=== PATIENT | female | born 1970 | race Caucasian/White ===

== ENCOUNTER 2017-03-30 16:14 | Inpatient (IN) ==
--- NOTE | 2017-03-30 16:47 | Emergency Department Note ---
Disposition Clinical Impression: Suicidal ideation Depression Qualifiers: Depression Type: unspecified Qualified Code(s): F32.9 - Major depressive disorder, single episode, unspecified Disposition: Admitted As Inpatient Condition: Fair Referrals: NO,PCP [Primary Care Provider] - Forms: ED Satisfaction Letter Time of Disposition: 20:18 Psych HPI - General Chief Complaint: ED Psychiatric Symptoms Stated Complaint: Depression (Sent by conselor) Time Seen by Provider: 03/30/17 16:40 Source: patient Mode of arrival: private vehicle Limitations: no limitations Nursing Notes Reviewed: Yes Vital Signs Reviewed: Yes - History of Present Illness Pt complaint: suicidal ideation, feels depressed Onset (ago): week(s) Duration: constant History of similar episodes: Yes Improves with: none Worsens with: none Context: not taking psychiatric medications, significant life stressor Associated Psychiatric Symptoms: depression, suicidal ideation, anxiety Associated symptoms: Reports: denies other symptoms Traumatic symptoms: denies traumatic injury Treatments prior to arrival: none Self harm or harm to others: admits thoughts of self harm - Related Data Previous Rx's Medication Instructions Recorded Ondansetron HCl [Zofran] 4 mg PO Q4HR PRN #12 tablet 06/10/16 HydrOXYzine Pamoate [Vistaril] 25 mg PO TID #20 capsule 10/06/16 HYDROcodone/Acet 5/325 mg [[place] 1 - 2 tab PO Q6H PRN #10 tab 03/29/17 5-325 mg] Allergies Allergy/AdvReac Type Severity Reaction Status Date / Time morphine AdvReac Itching Verified 03/30/17 16:38 All systems ED: reviewed and negative except as stated. Constitutional: Denies: fever, chills ENT ED: Denies: ear pain, throat pain, congestion Cardiovascular: Denies: chest pain, palpitations Respiratory: Denies: cough, dyspnea Gastrointestinal: Denies: abdominal pain, vomiting Musculoskeletal: Reports: arthralgia (Left shoulder pain due to an issue with shoulder dislocation that she is currently being treated for) Past Medical History - Past Medical History Attestation: Yes The following information was validated with the patient. 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 Absent: lymphadenopathy, thyromegaly - Chest Chest inspection: Present: normal inspection, symmetric chest wall rise. Absent : tenderness - Respiratory Respiratory exam: Present: normal lung sounds bilaterally. Absent: respiratory distress, wheezes - Cardiovascular Cardiovascular exam: Present: regular rate, normal rhythm, normal heart sounds - Abdominal Exam Abdominal exam: Present: soft, Non-Tender, normal bowel sounds. Absent: mass - Extremities Exam Extremities exam: Absent: pedal edema, joint swelling - Back Exam Back exam: Present: normal inspection, full ROM - Neurological Exam Neurological exam: Present: alert, oriented X3 - Psychiatric Psychiatric exam: Present: normal affect, normal mood - Skin Skin exam: Present: warm, dry. Absent: rash Course Course Narrative: Patient presents with a complaint of depression and suicidal ideation. She was sent in by her counselor. Clinically here she is calm and cooperative. My evaluation shows no obvious indications of medical pathology. We will do the labs and the urine assessment to complete the medical screening exam. If that is negative I will consult psychiatry to evaluate the patient. She is calm and cooperative at this time. - Reevaluation(s) Reevaluation #1: Patient's labs are back. She has some questionable issues with her urine but is pretty contaminated. There is nothing medically here to prohibit her from being seen by mental health. We will consult them. Time: 17:58 Reevaluation #2: Psychiatry seen the patient. They are admitting her. She remains calm and cooperative at this time. Time: 20:16 Vital Signs Temperature 98.7 F 03/30/17 16:31 Pulse Rate 78 03/30/17 16:31 Respiratory Rate 16 03/30/17 16:31 Blood Pressure 127/79 03/30/17 16:31 O2 Sat by Pulse Oximetry 98 03/30/17 16:31 Temperature 98.7 F 03/30/17 16:31 Pulse Rate 78 03/30/17 16:31 Respiratory Rate 16 03/30/17 16:31 Blood Pressure 127/79 03/30/17 16:31 O2 Sat by Pulse Oximetry 98 03/30/17 16:31 Oxygen Delivery Oxygen Delivery Room Air Psych - Lab Data Lab results reviewed: Yes I reviewed the patient's lab results. Result diagrams: 03/30/17 17:15 03/30/17 17:15 Lab Results 03/30/17 03/30/17 03/30/17 Range/Units 17:09 17:09 17:09 WBC (4.3-11.1) K/mcL RBC (3.82-4.97) M/mcL Hgb (11.5-15.4) g/dL Hct (35.3-44.9) % MCV (83.0-100.0) fL MCH (28.0-33.3) pg MCHC (31.6-35.5) g/dL RDW (11.5-14.5) % Plt Count (140-400) K/mcL MPV (9.4-12.4) fL Immature Gran % (0-4) % Seg Neutrophils % % Lymphocytes % % Monocytes % % Eosinophils % % Basophils % % Neutrophils # (1.6-8.9) K/mcL Lymphocytes # (0.6-4.6) K/mcL Monocytes # (0.0-1.3) K/mcL Eosinophils # (0.0-0.6) K/mcL Basophils # (0.0-0.2) K/mcL Sodium (136-145) mEq/L Potassium (3.5-4.5) mEq/L Chloride (98-109) mEq/L Carbon Dioxide (19-29) mEq/L BUN (7-20) mg/dL Creatinine (0.57-1.11) mg/dL Est GFR ( Amer) (> 60) Est GFR (Non-Af Amer) (> 60) BUN/Creatinine Ratio (6-26) Glucose (70-99) mg/dL Calculated Osmolality (280-300) Calcium (8.6-10.8) mg/dL Total Bilirubin (0.2-1.2) mg/dL Direct Bilirubin (0.0-0.5) mg/dL Indirect Bilirubin (0.0-1.2) mg/dL AST (5-34) Units/L ALT (0-55) Units/L Alkaline Phosphatase (38-126) Units/L Serum Total Protein (6.0-8.3) g/dL Albumin (3.5-5.0) g/dL Globulin (2.4-3.5) g/dL Albumin/Globulin Ratio (1.1-2.2) TSH (0.350-4.840) mcIU/mL Urine Color Yellow (Yellow) Urine Clarity Cloudy A (Clear) Urine pH 5.5 (5.0-8.0) pH Units Ur Specific [place] > 1.030 H (1.010-1.025) Urine Protein Negative (Neg-Trace) mg/dL Urine Glucose (UA) Normal (Normal) mg/dL Urine Ketones Negative (Negative) mg/dL Urine Blood Negative (Negative) Urine Nitrite Negative (Negative) Urine Bilirubin Large H (Negative) Urine Urobilinogen Normal (Normal) mg/dL Ur Leukocyte Esterase Negative (Negative) Urine Microscopic RBC 50-100 H (0-3) per hpf Urine Microscopic WBC 5-15 H (0-3) per hpf Ur Squamous Epith Cells Many H (None-Few) per lpf Urine Bacteria Moderate H (None-Few) per hpf Urine Test Negative (Negative) Salicylates (15-30) mg/dL Urine Opiates Screen Positive H (Victdp=472) ng/mL Acetaminophen (10-30) mcg/mL Ur Barbiturates Screen Negative (Ilarby=807) ng/mL Ur Phencyclidine Scrn Negative (Cutoff=25) ng/mL Ur Amphetamines Screen Negative (Lfqkga=2674) ng/mL U Benzodiazepines Scrn Positive H (Tsycwk=732) ng/mL Urine Cocaine Screen Positive H (Cutoff= 300) ng/mL U Marijuana (THC) Screen Negative (Cutoff = 50) ng/mL Ethyl Alcohol (0-10) mg/dL 03/30/17 03/30/17 Range/Units 17:15 17:15 WBC 5.4 (4.3-11.1) K/mcL RBC 4.10 (3.82-4.97) M/mcL Hgb 12.5 (11.5-15.4) g/dL Hct 37.7 (35.3-44.9) % MCV 92.0 (83.0-100.0) fL MCH 30.5 (28.0-33.3) pg MCHC 33.2 (31.6-35.5) g/dL RDW 11.9 (11.5-14.5) % Plt Count 211 (140-400) K/mcL MPV 10.6 (9.4-12.4) fL Immature Gran % 0.2 (0-4) % Seg Neutrophils % 54.7 % Lymphocytes % 37.6 % Monocytes % 5.3 % Eosinophils % 1.5 % Basophils % 0.7 % Neutrophils # 3.0 (1.6-8.9) K/mcL Lymphocytes # 2.0 (0.6-4.6) K/mcL Monocytes # 0.3 (0.0-1.3) K/mcL Eosinophils # 0.1 (0.0-0.6) K/mcL Basophils # 0.0 (0.0-0.2) K/mcL Sodium 140 (136-145) mEq/L Potassium 3.7 (3.5-4.5) mEq/L Chloride 108 (98-109) mEq/L Carbon Dioxide 22 (19-29) mEq/L BUN 26 H (7-20) mg/dL Creatinine 0.73 (0.57-1.11) mg/dL Est GFR ( Amer) > 60 (> 60) Est GFR (Non-Af Amer) > 60 (> 60) BUN/Creatinine Ratio 36 H (6-26) Glucose 117 H (70-99) mg/dL Calculated Osmolality 296 (280-300) Calcium 9.0 (8.6-10.8) mg/dL Total Bilirubin 0.3 (0.2-1.2) mg/dL Direct Bilirubin 0.2 (0.0-0.5) mg/dL Indirect Bilirubin 0.1 (0.0-1.2) mg/dL AST 31 (5-34) Units/L ALT 30 (0-55) Units/L Alkaline Phosphatase 61 (38-126) Units/L Serum Total Protein 7.0 (6.0-8.3) g/dL Albumin 3.7 (3.5-5.0) g/dL Globulin 3.3 (2.4-3.5) g/dL Albumin/Globulin Ratio 1.1 (1.1-2.2) TSH 0.301 L (0.350-4.840) mcIU/mL Urine Color (Yellow) Urine Clarity (Clear) Urine pH (5.0-8.0) pH Units Ur Specific [place] (1.010-1.025) Urine Protein (Neg-Trace) mg/dL Urine Glucose (UA) (Normal) mg/dL Urine Ketones (Negative) mg/dL Urine Blood (Negative) Urine Nitrite (Negative) Urine Bilirubin (Negative) Urine Urobilinogen (Normal) mg/dL Ur Leukocyte Esterase (Negative) Urine Microscopic RBC (0-3) per hpf Urine Microscopic WBC (0-3) per hpf Ur Squamous Epith Cells (None-Few) per lpf Urine Bacteria (None-Few) per hpf Urine Test (Negative) Salicylates < 5.0 L (15-30) mg/dL Urine Opiates Screen (Stifls=305) ng/mL Acetaminophen < 1.0 L (10-30) mcg/mL Ur Barbiturates Screen (Bpqfea=280) ng/mL Ur Phencyclidine Scrn (Cutoff=25) ng/mL Ur Amphetamines Screen (Nrrtio=7768) ng/mL U Benzodiazepines Scrn (Bkmlnv=602) ng/mL Urine Cocaine Screen (Cutoff= 300) ng/mL U Marijuana (THC) Screen (Cutoff = 50) ng/mL Ethyl Alcohol < 10 (0-10) mg/dL Psychiatric Medical Clearance - Medical Clearance Checklist Medical History: No Social History Section defined Current Vitals: Last Vital Signs Temp 98.7 F 03/30/17 16:31 Pulse 78 03/30/17 16:31 Resp 16 03/30/17 16:31 BP 127/79 03/30/17 16:31 Pulse Ox 98 03/30/17 16:31 Psychiatric Lab Panel: Drug Levels and Toxicity 03/30/17 03/30/17 17:09 17:15 Urine Opiates Screen Positive H Acetaminophen < 1.0 L Ur Barbiturates Screen Negative Ur Phencyclidine Scrn Negative Ur Amphetamines Screen Negative U Benzodiazepines Scrn Positive H Urine Cocaine Screen Positive H U Marijuana (THC) Screen Negative Ethyl Alcohol < 10 Abnormal Labs: Abnormal lab results BUN 26 mg/dL (7-20) H 03/30/17 17:15 BUN/Creatinine Ratio 36 (6-26) H 03/30/17 17:15 Glucose 117 mg/dL (70-99) H 03/30/17 17:15 TSH 0.301 mcIU/mL (0.350-4.840) L 03/30/17 17:15 Urine Clarity Cloudy (Clear) A 03/30/17 17:09 Ur Specific [place] > 1.030 (1.010-1.025) H 03/30/17 17:09 Urine Bilirubin Large (Negative) H 03/30/17 17:09 Urine Microscopic RBC 50-100 per hpf (0-3) H 03/30/17 17:09 Urine Microscopic WBC 5-15 per hpf (0-3) H 03/30/17 17:09 Ur Squamous Epith Cells Many per lpf (None-Few) H 03/30/17 17:09 Urine Bacteria Moderate per hpf (None-Few) H 03/30/17 17:09 Salicylates < 5.0 mg/dL (15-30) L 03/30/17 17:15 Urine Opiates Screen Positive ng/mL (Cdmydt=603) H 03/30/17 17:09 Acetaminophen < 1.0 mcg/mL (10-30) L 03/30/17 17:15 U Benzodiazepines Scrn Positive ng/mL (Klojvp=213) H 03/30/17 17:09 Urine Cocaine Screen Positive ng/mL (Cutoff= 300) H 03/30/17 17:09 Statement of Medical Clearance: I have evaluated the patient, reviewed diagnostic information, and certify that the patient's medical condition is sufficiently stable that transfer to the psychiatric unit does not pose a significant risk of deterioration.
[2017-03-30 17:25] LABS: Basophils % 0.7 %; Eosinophils # 0.1 K/mcL (0.0-0.6); Eosinophils % 1.5 %; Hematocrit 37.7 % (35.3-44.9); Hemoglobin 12.5 g/dL (11.5-15.4); Immature Granulocytes % 0.2 % (0-4); Lymphocytes % 37.6 %; Mean Corpuscular HGB Conc 33.2 g/dL (31.6-35.5); Mean Corpuscular Hemoglobin 30.5 pg (28.0-33.3); Mean Platelet Volume 10.6 fL (9.4-12.4); Monocytes # 0.3 K/mcL (0.0-1.3); Monocytes % 5.3 %; Platelet Count 211 K/mcL (140-400); Red Cell Distribution Width 11.9 % (11.5-14.5); Segmented Neutrophils % 54.7 %
[2017-03-30 17:26] LABS: Bilirubin,Urine Large (Negative); Blood,Urine Negative (Negative); Clarity,Urine Cloudy (Clear); Color,Urine Yellow (Yellow); Glucose,Urine (UA) Normal (Normal); Ketones,Urine Negative (Negative); Leukocyte Esterase,Urine Negative (Negative); Nitrite,Urine Negative (Negative); PH,Urine 5.5 pH Units (5.0-8.0); Protein,Urine Negative (Neg-Trace); Specific Gravity,Urine > 1.030 (1.010-1.025); Urobilinogen,Urine Normal (Normal)
[2017-03-30 17:28] LABS: Bacteria,Urine Moderate per hpf (None-Few); RBC,Urine 50-100 per hpf (0-3); Squamous Epithelial Cell,Urine Many per lpf (None-Few)
[2017-03-30 17:38] LABS: Amphetamine Screen,Urine Negative ng/mL (Cutoff=1000); Barbiturate Screen,Urine Negative ng/mL (Cutoff=200); Benzodiazepines Screen,Urine Positive ng/mL (Cutoff=200); Cannabinoid Screen,Urine Negative ng/mL (Cutoff = 50); Cocaine Screen,Urine Positive ng/mL (Cutoff= 300); Opiate Screen,Urine Positive ng/mL (Cutoff=300); Phencyclidine Screen,Urine Negative ng/mL (Cutoff=25)
[2017-03-30 17:45] LABS: Alanine Aminotransferase 30 Units/L (0-55); Albumin 3.7 g/dL (3.5-5.0); Albumin/Globulin Ratio 1.1 (1.1-2.2); Alkaline Phosphatase 61 Units/L (38-126); Aspartate Amino Transferase 31 Units/L (5-34); BUN/Creatinine Ratio 36 (6-26); Bilirubin,Direct 0.2 mg/dL (0.0-0.5); Bilirubin,Indirect 0.1 mg/dL (0.0-1.2); Bilirubin,Total 0.3 mg/dL (0.2-1.2); Blood Urea Nitrogen 26 mg/dL (7-20); Carbon Dioxide 22 mEq/L (19-29); Chloride 108 mEq/L (98-109); Globulin 3.3 g/dL (2.4-3.5); Glucose 117 mg/dL (70-99); Osmolality,Calculated 296 (280-300); Potassium 3.7 mEq/L (3.5-4.5); Sodium 140 mEq/L (136-145); eGFR For African Americans > 60 (> 60); eGFR For Non-African Americans > 60 (> 60)
[2017-03-30 17:46] LABS: Acetaminophen < 1.0 mcg/mL (10-30); Ethanol < 10 mg/dL (0-10); Salicylate < 5.0 mg/dL (15-30)
[2017-03-30 18:07] LABS: Thyroid Stimulating Hormone 0.301 mcIU/mL (0.350-4.840)
[2017-03-30] MEDS ORDERED: *HR* LORazepam 1 MG TABLET PO PRN (21:42)
[2017-03-30] MEDS ORDERED: *HR* LORazepam 2 MG/ML VIAL IM PRN (21:42)
[2017-03-30] MEDS ORDERED: traZODone 50 MG TABLET PO PRN (21:42)
[2017-03-30] MEDS ORDERED: hydrOXYzine pamoate 25 MG CAPSULE PO PRN (21:42)
[2017-03-30] MEDS ORDERED: Mag Hydrox/Al Hydrox/Simeth 30 ML UDC PO PRN (21:42)
[2017-03-30] MEDS ORDERED: MOM Conc 10 ML UD.LIQ PO PRN (21:42)
[2017-03-30] MEDS ORDERED: Haloperidol Lactate 5 MG/ML VIAL IM PRN (21:42)
[2017-03-30] MEDS ORDERED: Nicotine 21 MG PATCH.TD24 TD SCH (22:00)
[2017-03-30] MEDS: Nicotine 7 MG PATCH.TD24 TD SCH (22:35)
[2017-03-31] MEDS: Ibuprofen 400 MG TABLET PO PRN (04:08)
[2017-03-31] MEDS: Nicotine 7 MG PATCH.TD24 TD SCH (08:04)
--- NOTE | 2017-03-31 09:51 | Psychiatry History & Physical ---
Date of Encounter: 03/31/17 Time of Encounter: 09:20 History of Present Illness Patient Stated Chief Complaint: Suicidal and homicidal ideation Medicare Admission Attestation: For traditional Medicare patients the provided hospital inpatient services are reasonable and necessary and in the case of services not specified as inpatient -only under 42 CFR 419.22 (n), that they are appropriately provided as inpatient services in accordance 42 CFR 412.3. For Critical Access Hospital the patient may reasonably be expected to be discharged or transferred to a hospital within 96 hours after admission to the Critical Access Hospital. Admitted From: Emergency Dept History of Present Illness: Ms. Steward is a 47 year old female admitted from the emergency room for evaluation of suicidal and homicidal ideation. Patient had a history of depression and bipolar and PTSD and has been noncompliant with his medication for the past 2 and half years. She starts using drugs couple months ago including cocaine and benzos and THC and opiates. Patient had previous hospitalization in [place] and [place]. Her tox screen in the ED was positive for opiates and benzodiazepine and cocaine. Patient reports mood swings, irritability, hypersomnia lack of energy and suicidal ideation. Stressor recently her boyfriend's mother who is 80 years old is living with them and she is having a hard time adjusting to this new situation. She had thoughts about hurting the woman but she denies any intent to do so. She is unemployed and has 2 children who are grown. Past Med Surg Social Fam HX - Past Medical History Medical history: non-contributory, other - Past Psychiatric History Psychiatric history: Reports: anxiety, bipolar, PTSD, previous psychiatric hospitalization Past psychiatric history details: History of hospitalization in [place] and [place]. Also she has been on Suboxone treatment. - Past Surgical History Surgical History: other - Social History Smoking Status: Former smoker Smokeless Tobacco Status: No Alcohol use: none Drug use: cocaine, opiates Medications & Allergies Buprenorphine HCl/Naloxone HCl [Suboxone 8 mg-2 mg Sl Film] 1 film SL BID [History] Estrogen,Con/M-Progest Acet [Prempro 0.45-1.5 mg Tablet] 1 tab PO DAILY [History] Naproxen [Naprosyn] 500 mg PO BID 03/31/17 [History] Allergies morphine Adverse Reaction (Verified 03/30/17 16:38) Itching Review of Systems Psychiatric: Reports: suicidal ideation, homicidal ideation, irritability, mood swings Mental Status Exam Patient orientation: Yes Person, Yes Time, Yes Place, Yes Other (brace on left shoulder ) Level of alertness: Alert Patient appearance: Appropriate, Well Groomed, Thin Behavior: cooperative, nervous, tearful, impulsive, talkative Psychomotor activity: Increased Eye contact: Maintains Eye Contact Mood description: Anxious, Labile, Irritable Affect description: congruent with mood, labile, dysphoric Speech pattern: Normal rate, Normal rhythm, Normal tone, Pressured Speech volume: Loud Thought process: Linear, Goal Oriented Thought content: Yes Suicidal ideation, Yes Homicidal ideation, No Overt delusions Perceptual disturbances: No Auditory hallucinations, No Visual hallucinations Attention span: Capable of Focused Attention Memory description: Grossly Intact Patient reliability: Reliable Historian Intelligence estimate: Average Judgment: Limited Insight: Partial Results - Vital Signs Vital signs: Temp Pulse Resp BP Pulse Ox 98 F 63 18 107/71 98 03/31/17 08:26 03/31/17 08:26 03/31/17 08:26 03/31/17 08:26 03/30/17 16:31 - Labs Labs: Laboratory Last Values WBC 5.4 K/mcL (4.3-11.1) 03/30/17 17:15 RBC 4.10 M/mcL (3.82-4.97) 03/30/17 17:15 Hgb 12.5 g/dL (11.5-15.4) 03/30/17 17:15 Hct 37.7 % (35.3-44.9) 03/30/17 17:15 MCV 92.0 fL (83.0-100.0) 03/30/17 17:15 MCH 30.5 pg (28.0-33.3) 03/30/17 17:15 MCHC 33.2 g/dL (31.6-35.5) 03/30/17 17:15 RDW 11.9 % (11.5-14.5) 03/30/17 17:15 Plt Count 211 K/mcL (140-400) 03/30/17 17:15 MPV 10.6 fL (9.4-12.4) 03/30/17 17:15 Immature Gran % 0.2 % (0-4) 03/30/17 17:15 Seg Neutrophils % 54.7 % 03/30/17 17:15 Lymphocytes % 37.6 % 03/30/17 17:15 Monocytes % 5.3 % 03/30/17 17:15 Eosinophils % 1.5 % 03/30/17 17:15 Basophils % 0.7 % 03/30/17 17:15 Neutrophils # 3.0 K/mcL (1.6-8.9) 03/30/17 17:15 Lymphocytes # 2.0 K/mcL (0.6-4.6) 03/30/17 17:15 Monocytes # 0.3 K/mcL (0.0-1.3) 03/30/17 17:15 Eosinophils # 0.1 K/mcL (0.0-0.6) 03/30/17 17:15 Basophils # 0.0 K/mcL (0.0-0.2) 03/30/17 17:15 Sodium 140 mEq/L (136-145) 03/30/17 17:15 Potassium 3.7 mEq/L (3.5-4.5) 03/30/17 17:15 Chloride 108 mEq/L (98-109) 03/30/17 17:15 Carbon Dioxide 22 mEq/L (19-29) 03/30/17 17:15 BUN 26 mg/dL (7-20) H 03/30/17 17:15 Creatinine 0.73 mg/dL (0.57-1.11) 03/30/17 17:15 Est GFR ( Amer) > 60 (> 60) 03/30/17 17:15 Est GFR (Non-Af Amer) > 60 (> 60) 03/30/17 17:15 BUN/Creatinine Ratio 36 (6-26) H 03/30/17 17:15 Glucose 117 mg/dL (70-99) H 03/30/17 17:15 Calculated Osmolality 296 (280-300) 03/30/17 17:15 Calcium 9.0 mg/dL (8.6-10.8) 03/30/17 17:15 Total Bilirubin 0.3 mg/dL (0.2-1.2) 03/30/17 17:15 Direct Bilirubin 0.2 mg/dL (0.0-0.5) 03/30/17 17:15 Indirect Bilirubin 0.1 mg/dL (0.0-1.2) 03/30/17 17:15 AST 31 Units/L (5-34) 03/30/17 17:15 ALT 30 Units/L (0-55) 03/30/17 17:15 Alkaline Phosphatase 61 Units/L (38-126) 03/30/17 17:15 Serum Total Protein 7.0 g/dL (6.0-8.3) 03/30/17 17:15 Albumin 3.7 g/dL (3.5-5.0) 03/30/17 17:15 Globulin 3.3 g/dL (2.4-3.5) 03/30/17 17:15 Albumin/Globulin Ratio 1.1 (1.1-2.2) 03/30/17 17:15 TSH 0.301 mcIU/mL (0.350-4.840) L 03/30/17 17:15 Urine Color Yellow (Yellow) 03/30/17 17:09 Urine Clarity Cloudy (Clear) A 03/30/17 17:09 Urine pH 5.5 pH Units (5.0-8.0) 03/30/17 17:09 Ur Specific [place] > 1.030 (1.010-1.025) H 03/30/17 17:09 Urine Protein Negative mg/dL (Neg-Trace) 03/30/17 17:09 Urine Glucose (UA) Normal mg/dL (Normal) 03/30/17 17:09 Urine Ketones Negative mg/dL (Negative) 03/30/17 17:09 Urine Blood Negative (Negative) 03/30/17 17:09 Urine Nitrite Negative (Negative) 03/30/17 17:09 Urine Bilirubin Large (Negative) H 03/30/17 17:09 Urine Urobilinogen Normal mg/dL (Normal) 03/30/17 17:09 Ur Leukocyte Esterase Negative (Negative) 03/30/17 17:09 Urine Microscopic RBC 50-100 per hpf (0-3) H 03/30/17 17:09 Urine Microscopic WBC 5-15 per hpf (0-3) H 03/30/17 17:09 Ur Squamous Epith Cells Many per lpf (None-Few) H 03/30/17 17:09 Urine Bacteria Moderate per hpf (None-Few) H 03/30/17 17:09 Urine Test Negative (Negative) 03/30/17 17:09 Salicylates < 5.0 mg/dL (15-30) L 03/30/17 17:15 Urine Opiates Screen Positive ng/mL (Bcphzb=040) H 03/30/17 17:09 Acetaminophen < 1.0 mcg/mL (10-30) L 03/30/17 17:15 Ur Barbiturates Screen Negative ng/mL (Fnckie=404) 03/30/17 17:09 Ur Phencyclidine Scrn Negative ng/mL (Cutoff=25) 03/30/17 17:09 Ur Amphetamines Screen Negative ng/mL (Llipdu=4998) 03/30/17 17:09 U Benzodiazepines Scrn Positive ng/mL (Bheuyb=491) H 03/30/17 17:09 Urine Cocaine Screen Positive ng/mL (Cutoff= 300) H 03/30/17 17:09 U Marijuana (THC) Screen Negative ng/mL (Cutoff = 50) 03/30/17 17:09 Ethyl Alcohol < 10 mg/dL (0-10) 03/30/17 17:15 Assessment and Plan (1) Bipolar disorder current episode depressed Current visit: Yes Status: Acute Plan: Admit inpatient for safety and stabilization, Close observation, Suicide Precautions per unit protocol, Encourage participation in unit milieu, Group Therapy, Monitor sleep, Monitor appetite Additional Plan: We will start patient on Effexor XR 75 mg daily and Lamictal 50 mg at bedtime. Benefits and side effects were discussed patient is agreeable and will monitor. Risks, benefits, side effects, alternatives discussed w/pt: Yes Patient agreeable to treatment: Yes Estimated Length of Stay (Days): 5 Qualifiers: Current episode severity: severe Psychotic features: without psychotic features Qualified Code(s): F31.4 - Bipolar disorder, current episode depressed, severe, without psychotic features (2) Polysubstance dependence including opioid type drug, episodic abuse Current visit: Yes Status: Acute Plan: Admit inpatient for safety and stabilization, Close observation, Suicide Precautions per unit protocol, Encourage participation in unit milieu, Group Therapy, Monitor sleep, Monitor appetite Additional Plan: Referral to outpatient treatment for chemical dependency.
[2017-03-31] MEDS: lamoTRIgine 25 MG TABLET PO SCH ×2 (09:52→20:29)
[2017-03-31] MEDS: Venlafaxine XR (24 HR) 75 MG CAP.ER.24H PO SCH (09:52)
[2017-04-01] MEDS: Nicotine 7 MG PATCH.TD24 TD SCH (08:20)
[2017-04-01] MEDS: Venlafaxine XR (24 HR) 75 MG CAP.ER.24H PO SCH (08:20)
[2017-04-01] MEDS: Ibuprofen 400 MG TABLET PO PRN (10:07)
[2017-04-01 10:18] VITALS: BP 121/82
--- NOTE | 2017-04-01 12:40 | Discharge Summary ---
Date of Encounter: 04/01/17 Time of Encounter: 12:35 Diagnosis - Discharge Diagnosis (1) Bipolar disorder current episode depressed Status: Acute Qualifiers: Current episode severity: severe Psychotic features: without psychotic features Qualified Code(s): F31.4 - Bipolar disorder, current episode depressed, severe, without psychotic features Medications - Discharge Medications Prescriptions: Diclofenac Sodium [Voltaren] 50 mg PO TIDWM #30 tablet. Lamotrigine [Lamictal] 50 mg PO HS #60 tablet Naproxen [Naprosyn] 500 mg PO BID #60 tablet Venlafaxine XR (24 HR) [Effexor XR] 75 mg PO DAILY #30 cap.er.24h Buprenorphine HCl/Naloxone HCl [Suboxone 8 mg-2 mg Sl Film] 1 film SL BID [History] Estrogen,Con/M-Progest Acet [Prempro 0.45-1.5 mg Tablet] 1 tab PO DAILY [History] Diclofenac Sodium [Voltaren] 50 mg PO TIDWM #30 tablet. 04/01/17 [Rx] Lamotrigine [Lamictal] 50 mg PO HS #60 tablet 04/01/17 [Rx] Naproxen [Naprosyn] 500 mg PO BID #60 tablet 04/01/17 [Rx] Venlafaxine XR (24 HR) [Effexor XR] 75 mg PO DAILY #30 cap.er.24h 04/01/17 [Rx] Allergies morphine Adverse Reaction (Verified 03/30/17 16:38) Itching Provider Date of admission: 03/30/17 20:29 Primary care physician: PCP NO Discharging clinician: Yue Tran Assessment and Plan - Follow up Plan Follow up with: [facility] [Outside] - 05/03/17 1:00 pm (The above appointment is with psychiatric prescriber, Kenyatta Crane. Please arrive 30 minutes early for this appointment to complete paperwork. This is the first available appointment. You may contact the office regularly to check for cancellations that may allow you to be seen sooner. ) [facility] [Outside] - 04/05/17 1:00 pm (The above appointment is with Vidhi Flores. When you come to your first appointment, you will have an orientation to the agency and you will meet with a counselor. Please bring the following with you to your first visit to the clinic: 1) proof of household income (two consecutive pay stubs, social security award letter, bank statement, statement letter from [facility], child support statement, IRS 1040 or W2 form, or a statement from the person who financially supports you stating they help provide for your basic needs), 2) proof of residency (drivers license, a piece of mail showing your address, a statement from person you live with verifying you live at their address), 3) your social security card, 4) photo ID , 5) your insurance card (if you have commercial insurance you must call to obtain a prior authorization number before you arrive to your first appointment ) and 6) if you do not have insurance but have applied for Medicaid, please bring verification you have applied. This is the first available appointment. You may contact the office regularly to check for cancellations that may allow you to be seen sooner. ) Josef Feldman, PAC [[facility] [employer]] - 04/15/17 11:30 am (The above appointment is with Josef Feldman at [facility]. This appointment is to establish you with a primary care provider. Your needs for psychiatric medication and/or Vivitrol will be assessed for and treated as well. Please arrive 15 minutes early to complete paperwork. Please bring your insurance card, photo ID and list of current medications to your first appointment. This is the first available appointment. You may contact the office regularly to check for cancellations that may allow you to be seen sooner. ) Functional capacity at discharge: independent ambulation Overall status at discharge: Stable Disposition: Home, Self-Care Hospital Course Hospital course: Ms. Steward is a 47 year old female who was admitted to the hospital secondary to suicidal ideation and homicidal ideation toward her boyfriend's mother. She had been off of her mental health medications for two years at the time of admission. She was restarted on the medications that had stabilized her in the past with positive results. On exam today she was upbeat and positive. She reported she was blowing problems out of proportion and now recognizes that her issues are not "unfixable." She denied SI and HI and there was no evidence of psychosis or major mood disturbance. She is scheduled for an MRI of her shoulder today as she is due for surgery of a dislocated shoulder. She is being discharged to attend that appointment. She is also scheduled to meet with her Suboxone prescriber on Saturday and she has been faithful with those appointments. She reports her boyfriend is supportive of her and returning to live with him is a positive. - Time Spent with Patient Total time spent providing and/or coordinating discharge services: Quality - Multiple Antipsychotics Patient discharged on 2 or more antipsychotic medications: No Mental Status Exam - Mental Status Exam Patient orientation: Yes Person, Yes Time, Yes Place Level of alertness: Alert Patient appearance: Appropriate, Well Groomed Behavior: calm, cooperative Psychomotor activity: Normal Eye contact: Maintains Eye Contact Mood description: Euthymic/stable Affect description: congruent with mood, full range Speech pattern: Normal rate, Normal rhythm, Normal tone Speech Volume: Normal Thought process: Linear, Goal Oriented Thought Content: No Suicidal ideation, No Homicidal ideation, No Overt delusions Perceptual Disturbances: No Auditory hallucinations, No Visual hallucinations Judgment: Fair Insight: Partial
== END 2017-04-01 14:30 | disposition home or self-care (01) | DRG 753 ==
LOC: EMEROO 16:14 → 1ANU 20:29 → SUATTDRO 20:29 → 1ANU 20:35
PROVIDERS: ADMIT Psychiatry & Neurology Psychiatry; ATTEND Psychiatry & Neurology Psychiatry

== ENCOUNTER 2018-12-26 17:17 | Observation (INO) ==
[2018-12-26] MEDS ORDERED: 0.9 % Sodium Chloride 1,000 ML IVC ONE (17:20)
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
[2018-12-26 17:42] LABS: Bilirubin,Urine Small (Negative); Blood,Urine Negative (Negative); Clarity,Urine Clear (Clear); Color,Urine Dark Yellow (Yellow); Glucose,Urine (UA) Normal (Normal); Ketones,Urine Trace mg/dL (Negative); Leukocyte Esterase,Urine Negative (Negative); Nitrite,Urine Negative (Negative); Protein,Urine 30 mg/dL (Neg-Trace); Specific Gravity,Urine > 1.030 (1.010-1.025); Urobilinogen,Urine Normal (Normal)
[2018-12-26 17:44] LABS: Bacteria,Urine None Seen per hpf (None-Few); RBC,Urine 0-3 per hpf (0-3); Squamous Epithelial Cell,Urine Many per lpf (None-Few)
[2018-12-26 17:56] LABS: Hyaline Casts,Urine Few per lpf (None-Few); Mucus,Urine Many (Few)
[2018-12-26 17:58] LABS: Amphetamine Screen,Urine Positive ng/mL (Cutoff=1000); Barbiturate Screen,Urine Negative ng/mL (Cutoff=200); Benzodiazepines Screen,Urine Positive ng/mL (Cutoff=200); Cannabinoid Screen,Urine Negative ng/mL (Cutoff = 50); Cocaine Screen,Urine Positive ng/mL (Cutoff= 300); Opiate Screen,Urine Negative ng/mL (Cutoff=300); Phencyclidine Screen,Urine Negative ng/mL (Cutoff=25)
[2018-12-26 18:09] LABS: Basophils # 0.1 K/mcL (0.0-0.2); Basophils % 0.7 %; Eosinophils # 0.1 K/mcL (0.0-0.6); Hematocrit 34.7 % (35.3-44.9); Hemoglobin 11.7 g/dL (11.5-15.4); Immature Granulocytes % 0.1 % (0-4); Lymphocytes # 2.5 K/mcL (0.6-4.6); Lymphocytes % 35.8 %; Mean Corpuscular HGB Conc 33.7 g/dL (31.6-35.5); Mean Corpuscular Hemoglobin 30.5 pg (28.0-33.3); Mean Corpuscular Volume 90.6 fL (83.0-100.0); Mean Platelet Volume 10.6 fL (9.4-12.4); Monocytes # 0.7 K/mcL (0.0-1.3); Monocytes % 9.4 %; Neutrophils # 3.6 K/mcL (1.6-8.9); Platelet Count 261 K/mcL (140-400); Red Blood Count 3.83 M/mcL (3.82-4.97); Red Cell Distribution Width 12.6 % (11.5-14.5)
[2018-12-26 18:27] LABS: Acetaminophen < 10 mcg/mL (10-20); Alanine Aminotransferase 47 Units/L (7-52); Albumin 4.6 g/dL (3.5-5.7); Albumin/Globulin Ratio 1.6 (1.1-2.2); Alkaline Phosphatase 68 Units/L (34-104); Aspartate Amino Transferase 54 Units/L (13-39); BUN/Creatinine Ratio 28 (6-26); Bilirubin,Direct 0.3 mg/dL (0.0-0.2); Bilirubin,Indirect 0.5 mg/dL (0.0-1.2); Bilirubin,Total 0.8 mg/dL (0.3-1.0); Blood Urea Nitrogen 23 mg/dL (6-20); Calcium 10.1 mg/dL (8.6-10.3); Carbon Dioxide 27 mEq/L (23-29); Chloride 102 mEq/L (98-107); Ethanol < 10 mg/dL (Less than 10); Globulin 2.8 g/dL (2.4-3.5); Glucose 91 mg/dL (70-105); Osmolality,Calculated 291 (280-300); Potassium 3.6 mEq/L (3.5-5.1); Salicylate < 2.5 mg/dL (15.0-30.0); Sodium 139 mEq/L (136-145); Total Protein 7.4 g/dL (6.4-8.9); eGFR For Non-African Americans > 60 (> 60)
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
[2018-12-26 18:39] LABS: Thyroid Stimulating Hormone 1.022 mcIU/mL (0.340-5.600)
--- NOTE | 2018-12-26 20:26 | Emergency Department Note ---
Disposition Clinical Impression: Intentional overdose of drug in tablet form Disposition: Admitted As Inpatient Condition: Fair Referrals: NONE,PCP [Primary Care Provider] - Forms: ED Satisfaction Letter Time of Disposition: 20:26 Altered Mental Status HPI - General Chief Complaint: ED Altered Mental Status Stated Complaint: "took a miracle pill from a pervert" Time Seen by Provider: 12/26/18 17:19 Source: EMS Limitations: no limitations Nursing Notes Reviewed: Yes Vital Signs Reviewed: Yes - History of Present Illness HPI Narrative: Patient was signed out to me by the day team, Dr. Kearney and Dr. Johnson. Please see their history of present illness for further evaluation, physical exam as well as review of systems. - Related Data Home Medications Medication Instructions Recorded Confirmed Buprenorphine HCl/Naloxone HCl 1 film SL BID 03/31/17 03/31/17 [Suboxone 8 mg-2 mg Sl Film] Estrogen,Con/M-Progest Acet 1 tab PO DAILY 03/31/17 03/31/17 [Prempro 0.45-1.5 mg Tablet] Previous Rx's Medication Instructions Recorded Diclofenac Sodium [Voltaren] 50 mg PO TIDWM #30 tablet. 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 - Social History Smoking Status: Former smoker Smokeless Tobacco Status: No Alcohol use: Reports: none Drug use: Reports: cocaine, opiates Physical Exam - General Limitations: no limitations General appearance: appears intoxicated, lethargic Course Vital Signs Temperature 98.3 F 12/26/18 17:21 Pulse Rate 94 12/26/18 17:21 Respiratory Rate 14 12/26/18 17:21 Blood Pressure 114/87 12/26/18 17:21 O2 Sat by Pulse Oximetry 100 12/26/18 17:21 Temperature 98.3 F 12/26/18 17:21 Pulse Rate 94 12/26/18 17:21 Respiratory Rate 14 12/26/18 17:21 Blood Pressure 114/87 12/26/18 17:21 O2 Sat by Pulse Oximetry 98 12/26/18 17:32 Oxygen Delivery Oxygen Delivery Room Air Altered Mental Status - MDM Narrative Medical decision making narrative: Patient was signed out to me by the day team, while here, patient remained stable, is arousable to verbal stimuli, does not respond to my questions, however will open her eyes. Patient is maintaining saturations as well as been stable here in the ER. CT of the head is unremarkable, no intracranial findings. This point in time, the patient will be admitted for further observation. - Medical Records Medical records reviewed: Yes I reviewed the patient's medical records. - Lab Data Lab results reviewed: Yes I reviewed the patient's lab results. Result diagrams: 12/26/18 17:20 12/26/18 17:20 Lab Results 12/26/18 12/26/18 12/26/18 Range/Units 17:20 17:20 17:32 WBC 7.0 (4.3-11.1) K/mcL RBC 3.83 (3.82-4.97) M/mcL Hgb 11.7 (11.5-15.4) g/dL Hct 34.7 L (35.3-44.9) % MCV 90.6 (83.0-100.0) fL MCH 30.5 (28.0-33.3) pg MCHC 33.7 (31.6-35.5) g/dL RDW 12.6 (11.5-14.5) % Plt Count 261 (140-400) K/mcL MPV 10.6 (9.4-12.4) fL Immature Gran % 0.1 (0-4) % Seg Neutrophils % 52.0 % Lymphocytes % 35.8 % Monocytes % 9.4 % Eosinophils % 2.0 % Basophils % 0.7 % Neutrophils # 3.6 (1.6-8.9) K/mcL Lymphocytes # 2.5 (0.6-4.6) K/mcL Monocytes # 0.7 (0.0-1.3) K/mcL Eosinophils # 0.1 (0.0-0.6) K/mcL Basophils # 0.1 (0.0-0.2) K/mcL Sodium 139 (136-145) mEq/L Potassium 3.6 (3.5-5.1) mEq/L Chloride 102 (98-107) mEq/L Carbon Dioxide 27 (23-29) mEq/L BUN 23 H (6-20) mg/dL Creatinine 0.82 (0.60-1.20) mg/dL Est GFR ( Amer) > 60 (> 60) Est GFR (Non-Af Amer) > 60 (> 60) BUN/Creatinine Ratio 28 H (6-26) Glucose 91 (70-105) mg/dL Calculated Osmolality 291 (280-300) Calcium 10.1 (8.6-10.3) mg/dL Total Bilirubin 0.8 (0.3-1.0) mg/dL Direct Bilirubin 0.3 H (0.0-0.2) mg/dL Indirect Bilirubin 0.5 (0.0-1.2) mg/dL AST 54 H (13-39) Units/L ALT 47 (7-52) Units/L Alkaline Phosphatase 68 (34-104) Units/L Serum Total Protein 7.4 (6.4-8.9) g/dL Albumin 4.6 (3.5-5.7) g/dL Globulin 2.8 (2.4-3.5) g/dL Albumin/Globulin Ratio 1.6 (1.1-2.2) TSH 1.022 (0.340-5.600) mcIU/mL Urine Color Dark Yellow (Yellow) Urine Clarity Clear (Clear) Urine pH 5.0 (5.0-8.0) pH Units Ur Specific [place] > 1.030 H (1.010-1.025) Urine Protein 30 H (Neg-Trace) mg/dL Urine Glucose (UA) Normal (Normal) mg/dL Urine Ketones Trace H (Negative) mg/dL Urine Blood Negative (Negative) Urine Nitrite Negative (Negative) Urine Bilirubin Small H (Negative) Urine Urobilinogen Normal (Normal) mg/dL Ur Leukocyte Esterase Negative (Negative) Urine Microscopic RBC 0-3 (0-3) per hpf Urine Microscopic WBC 3-5 H (0-3) per hpf Ur Squamous Epith Cells Many H (None-Few) per lpf Urine Bacteria None Seen (None-Few) per hpf Hyaline Casts Few (None-Few) per lpf Urine Mucus Many H (Few) Salicylates < 2.5 L (15.0-30.0) mg/dL Urine Opiates Screen (Igtuls=623) ng/mL Acetaminophen < 10 L (10-20) mcg/mL Ur Barbiturates Screen (Rowpzz=750) ng/mL Ur Phencyclidine Scrn (Cutoff=25) ng/mL Ur Amphetamines Screen (Mqpvyh=4856) ng/mL U Benzodiazepines Scrn (Qwzyhv=630) ng/mL Urine Cocaine Screen (Cutoff= 300) ng/mL U Marijuana (THC) Screen (Cutoff = 50) ng/mL Ur Drug Screen Interp Ethyl Alcohol < 10 (Less than 10) mg/dL 12/26/18 Range/Units 17:32 WBC (4.3-11.1) K/mcL RBC (3.82-4.97) M/mcL Hgb (11.5-15.4) g/dL Hct (35.3-44.9) % MCV (83.0-100.0) fL MCH (28.0-33.3) pg MCHC (31.6-35.5) g/dL RDW (11.5-14.5) % Plt Count (140-400) K/mcL MPV (9.4-12.4) fL Immature Gran % (0-4) % Seg Neutrophils % % Lymphocytes % % Monocytes % % Eosinophils % % Basophils % % Neutrophils # (1.6-8.9) K/mcL Lymphocytes # (0.6-4.6) K/mcL Monocytes # (0.0-1.3) K/mcL Eosinophils # (0.0-0.6) K/mcL Basophils # (0.0-0.2) K/mcL Sodium (136-145) mEq/L Potassium (3.5-5.1) mEq/L Chloride (98-107) mEq/L Carbon Dioxide (23-29) mEq/L BUN (6-20) mg/dL Creatinine (0.60-1.20) mg/dL Est GFR ( Amer) (> 60) Est GFR (Non-Af Amer) (> 60) BUN/Creatinine Ratio (6-26) Glucose (70-105) mg/dL Calculated Osmolality (280-300) Calcium (8.6-10.3) mg/dL Total Bilirubin (0.3-1.0) mg/dL Direct Bilirubin (0.0-0.2) mg/dL Indirect Bilirubin (0.0-1.2) mg/dL AST (13-39) Units/L ALT (7-52) Units/L Alkaline Phosphatase (34-104) Units/L Serum Total Protein (6.4-8.9) g/dL Albumin (3.5-5.7) g/dL Globulin (2.4-3.5) g/dL Albumin/Globulin Ratio (1.1-2.2) TSH (0.340-5.600) mcIU/mL Urine Color (Yellow) Urine Clarity (Clear) Urine pH (5.0-8.0) pH Units Ur Specific [place] (1.010-1.025) Urine Protein (Neg-Trace) mg/dL Urine Glucose (UA) (Normal) mg/dL Urine Ketones (Negative) mg/dL Urine Blood (Negative) Urine Nitrite (Negative) Urine Bilirubin (Negative) Urine Urobilinogen (Normal) mg/dL Ur Leukocyte Esterase (Negative) Urine Microscopic RBC (0-3) per hpf Urine Microscopic WBC (0-3) per hpf Ur Squamous Epith Cells (None-Few) per lpf Urine Bacteria (None-Few) per hpf Hyaline Casts (None-Few) per lpf Urine Mucus (Few) Salicylates (15.0-30.0) mg/dL Urine Opiates Screen Negative (Becuhc=557) ng/mL Acetaminophen (10-20) mcg/mL Ur Barbiturates Screen Negative (Pxeiij=933) ng/mL Ur Phencyclidine Scrn Negative (Cutoff=25) ng/mL Ur Amphetamines Screen Positive H (Yjrmrp=6540) ng/mL U Benzodiazepines Scrn Positive H (Lrcwxr=957) ng/mL Urine Cocaine Screen Positive H (Cutoff= 300) ng/mL U Marijuana (THC) Screen Negative (Cutoff = 50) ng/mL Ur Drug Screen Interp See Below Ethyl Alcohol (Less than 10) mg/dL - Radiology Data Radiology results reviewed: Yes I reviewed the patient's radiology results. Chest X-Ray 12/26/18 17:20 IMPRESSION: Slightly increased interstitial markings bilaterally which could reflect mild edema. Otherwise no focal consolidation. D/ / Perla Meek MD / Perla Meek MD Interpreting Provider: Perla Meek MD Head CT 12/26/18 17:20 IMPRESSION: No acute intracranial abnormality. D/ / Neo Castañeda MD / Neo Castañeda MD Interpreting Provider: Neo Castañeda MD Checklist - LKW: 3-4.5 hrs Add. Warnings/Precautions Patient/family understanding: The patient/family members have been counseled and understood the risk, benefit, and alternatives of treatment. Merlene - Merlene Situation: Demographics, MOA Background: Presenting Complaint, Relevant PMH, Meds, & Allergies Assessment: Vital Signs, Course and respsone to treatment, Exam Concerns, Patient/Family Expectation, Pertinant Lab Results, Outstanding Labs Recommendation: Barrier(s) to disposition, Recommendation based on pending studies, treatments, or consults Merlene Report Given to: Dr. Ada Blunt Repor Time: 20:26 (accepted)
--- NOTE | 2018-12-26 20:28 | Emergency Department Note ---
Disposition Clinical Impression: Intentional overdose of drug in tablet form Disposition: Admitted As Inpatient Condition: Fair Referrals: NONE,PCP [Primary Care Provider] - Forms: ED Satisfaction Letter General Adult HPI - General Chief complaint: ED Altered Mental Status Stated complaint: "took a miracle pill from a pervert" Time Seen by Provider: 12/26/18 17:19 Source: EMS Limitations: no limitations Nursing Notes Reviewed: Yes Vital Signs Reviewed: Yes - History of Present Illness Pain Scale: 0 - Related Data Home Medications Medication Instructions Recorded Confirmed Buprenorphine HCl/Naloxone HCl 1 film SL BID 03/31/17 03/31/17 [Suboxone 8 mg-2 mg Sl Film] Estrogen,Con/M-Progest Acet 1 tab PO DAILY 03/31/17 03/31/17 [Prempro 0.45-1.5 mg Tablet] Previous Rx's Medication Instructions Recorded Diclofenac Sodium [Voltaren] 50 mg PO TIDWM #30 tablet. 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 - Social History Smoking Status: Former smoker Smokeless Tobacco Status: No Alcohol use: Reports: none Drug use: Reports: cocaine, opiates Physical Exam - General Limitations: no limitations General appearance: appears intoxicated, lethargic Course Vital Signs Temperature 98.3 F 12/26/18 17:21 Pulse Rate 94 12/26/18 17:21 Respiratory Rate 14 12/26/18 17:21 Blood Pressure 114/87 12/26/18 17:21 O2 Sat by Pulse Oximetry 100 12/26/18 17:21 Temperature 98.3 F 12/26/18 17:21 Pulse Rate 94 12/26/18 17:21 Respiratory Rate 14 12/26/18 17:21 Blood Pressure 114/87 12/26/18 17:21 O2 Sat by Pulse Oximetry 98 12/26/18 17:32 Oxygen Delivery Oxygen Delivery Room Air Medical Decision Making - Medical Records Medical records reviewed: Yes I reviewed the patient's medical records. - Lab Data Lab results reviewed: Yes I reviewed the patient's lab results. Result diagrams: 12/26/18 17:20 12/26/18 17:20 Lab Results 12/26/18 12/26/18 12/26/18 Range/Units 17:20 17:20 17:32 WBC 7.0 (4.3-11.1) K/mcL RBC 3.83 (3.82-4.97) M/mcL Hgb 11.7 (11.5-15.4) g/dL Hct 34.7 L (35.3-44.9) % MCV 90.6 (83.0-100.0) fL MCH 30.5 (28.0-33.3) pg MCHC 33.7 (31.6-35.5) g/dL RDW 12.6 (11.5-14.5) % Plt Count 261 (140-400) K/mcL MPV 10.6 (9.4-12.4) fL Immature Gran % 0.1 (0-4) % Seg Neutrophils % 52.0 % Lymphocytes % 35.8 % Monocytes % 9.4 % Eosinophils % 2.0 % Basophils % 0.7 % Neutrophils # 3.6 (1.6-8.9) K/mcL Lymphocytes # 2.5 (0.6-4.6) K/mcL Monocytes # 0.7 (0.0-1.3) K/mcL Eosinophils # 0.1 (0.0-0.6) K/mcL Basophils # 0.1 (0.0-0.2) K/mcL Sodium 139 (136-145) mEq/L Potassium 3.6 (3.5-5.1) mEq/L Chloride 102 (98-107) mEq/L Carbon Dioxide 27 (23-29) mEq/L BUN 23 H (6-20) mg/dL Creatinine 0.82 (0.60-1.20) mg/dL Est GFR ( Amer) > 60 (> 60) Est GFR (Non-Af Amer) > 60 (> 60) BUN/Creatinine Ratio 28 H (6-26) Glucose 91 (70-105) mg/dL Calculated Osmolality 291 (280-300) Calcium 10.1 (8.6-10.3) mg/dL Total Bilirubin 0.8 (0.3-1.0) mg/dL Direct Bilirubin 0.3 H (0.0-0.2) mg/dL Indirect Bilirubin 0.5 (0.0-1.2) mg/dL AST 54 H (13-39) Units/L ALT 47 (7-52) Units/L Alkaline Phosphatase 68 (34-104) Units/L Serum Total Protein 7.4 (6.4-8.9) g/dL Albumin 4.6 (3.5-5.7) g/dL Globulin 2.8 (2.4-3.5) g/dL Albumin/Globulin Ratio 1.6 (1.1-2.2) TSH 1.022 (0.340-5.600) mcIU/mL Urine Color Dark Yellow (Yellow) Urine Clarity Clear (Clear) Urine pH 5.0 (5.0-8.0) pH Units Ur Specific [place] > 1.030 H (1.010-1.025) Urine Protein 30 H (Neg-Trace) mg/dL Urine Glucose (UA) Normal (Normal) mg/dL Urine Ketones Trace H (Negative) mg/dL Urine Blood Negative (Negative) Urine Nitrite Negative (Negative) Urine Bilirubin Small H (Negative) Urine Urobilinogen Normal (Normal) mg/dL Ur Leukocyte Esterase Negative (Negative) Urine Microscopic RBC 0-3 (0-3) per hpf Urine Microscopic WBC 3-5 H (0-3) per hpf Ur Squamous Epith Cells Many H (None-Few) per lpf Urine Bacteria None Seen (None-Few) per hpf Hyaline Casts Few (None-Few) per lpf Urine Mucus Many H (Few) Salicylates < 2.5 L (15.0-30.0) mg/dL Urine Opiates Screen (Fampbs=422) ng/mL Acetaminophen < 10 L (10-20) mcg/mL Ur Barbiturates Screen (Lzwahv=485) ng/mL Ur Phencyclidine Scrn (Cutoff=25) ng/mL Ur Amphetamines Screen (Srbdyx=4213) ng/mL U Benzodiazepines Scrn (Kdegdy=096) ng/mL Urine Cocaine Screen (Cutoff= 300) ng/mL U Marijuana (THC) Screen (Cutoff = 50) ng/mL Ur Drug Screen Interp Ethyl Alcohol < 10 (Less than 10) mg/dL 12/26/18 Range/Units 17:32 WBC (4.3-11.1) K/mcL RBC (3.82-4.97) M/mcL Hgb (11.5-15.4) g/dL Hct (35.3-44.9) % MCV (83.0-100.0) fL MCH (28.0-33.3) pg MCHC (31.6-35.5) g/dL RDW (11.5-14.5) % Plt Count (140-400) K/mcL MPV (9.4-12.4) fL Immature Gran % (0-4) % Seg Neutrophils % % Lymphocytes % % Monocytes % % Eosinophils % % Basophils % % Neutrophils # (1.6-8.9) K/mcL Lymphocytes # (0.6-4.6) K/mcL Monocytes # (0.0-1.3) K/mcL Eosinophils # (0.0-0.6) K/mcL Basophils # (0.0-0.2) K/mcL Sodium (136-145) mEq/L Potassium (3.5-5.1) mEq/L Chloride (98-107) mEq/L Carbon Dioxide (23-29) mEq/L BUN (6-20) mg/dL Creatinine (0.60-1.20) mg/dL Est GFR ( Amer) (> 60) Est GFR (Non-Af Amer) (> 60) BUN/Creatinine Ratio (6-26) Glucose (70-105) mg/dL Calculated Osmolality (280-300) Calcium (8.6-10.3) mg/dL Total Bilirubin (0.3-1.0) mg/dL Direct Bilirubin (0.0-0.2) mg/dL Indirect Bilirubin (0.0-1.2) mg/dL AST (13-39) Units/L ALT (7-52) Units/L Alkaline Phosphatase (34-104) Units/L Serum Total Protein (6.4-8.9) g/dL Albumin (3.5-5.7) g/dL Globulin (2.4-3.5) g/dL Albumin/Globulin Ratio (1.1-2.2) TSH (0.340-5.600) mcIU/mL Urine Color (Yellow) Urine Clarity (Clear) Urine pH (5.0-8.0) pH Units Ur Specific [place] (1.010-1.025) Urine Protein (Neg-Trace) mg/dL Urine Glucose (UA) (Normal) mg/dL Urine Ketones (Negative) mg/dL Urine Blood (Negative) Urine Nitrite (Negative) Urine Bilirubin (Negative) Urine Urobilinogen (Normal) mg/dL Ur Leukocyte Esterase (Negative) Urine Microscopic RBC (0-3) per hpf Urine Microscopic WBC (0-3) per hpf Ur Squamous Epith Cells (None-Few) per lpf Urine Bacteria (None-Few) per hpf Hyaline Casts (None-Few) per lpf Urine Mucus (Few) Salicylates (15.0-30.0) mg/dL Urine Opiates Screen Negative (Csqgop=383) ng/mL Acetaminophen (10-20) mcg/mL Ur Barbiturates Screen Negative (Nzbiok=793) ng/mL Ur Phencyclidine Scrn Negative (Cutoff=25) ng/mL Ur Amphetamines Screen Positive H (Xeoorp=2258) ng/mL U Benzodiazepines Scrn Positive H (Qqpraa=145) ng/mL Urine Cocaine Screen Positive H (Cutoff= 300) ng/mL U Marijuana (THC) Screen Negative (Cutoff = 50) ng/mL Ur Drug Screen Interp See Below Ethyl Alcohol (Less than 10) mg/dL - Radiology Data Radiology results reviewed: Yes I reviewed the patient's radiology results. Chest X-Ray 12/26/18 17:20 IMPRESSION: Slightly increased interstitial markings bilaterally which could reflect mild edema. Otherwise no focal consolidation. D/ / Perla Meek MD / Perla Meek MD Interpreting Provider: Perla Meek MD Head CT 12/26/18 17:20 IMPRESSION: No acute intracranial abnormality. D/ / Neo Castañeda MD / Neo Castañeda MD Interpreting Provider: Neo Castañeda MD Attestation Statement - Attestation Attestation: I, Alejandro Kong MD, personally evaluated this patient and discussed their management with the resident physician. I reviewed the resident's note and agree with the documented findings, medical decision making, and plan of care. This patient was signed out at shift change from Dr. Hidalgo and Dr. Gina Johnson. Please refer to their notes for complete details of the history and physical examination. Patient presented after an intentional ingestion of an unknown substance. She presented with altered mental status. At shift change patient is just awaiting a CT of the head before consulted and the hospitalist for medical admission for overdose for observation for medical clearance and then to be evaluated later by [address] psychiatry department. Edwards slip has been signed by Dr. Johnson. On examination patient is a well-developed well-nourished female in no distress. Patient sleeping but responds to verbal stimuli. When awakened she seems dazed and confused and disoriented and really unable to answer questions appropriately. Patient on continuous monitoring with stable vital signs. Breath sounds are clear and equal bilaterally. Heart regular rate and rhythm. Abdomen soft with normal bowel sounds. The hospitalist, Dr. Caballero, was consulted and accepted admission of the patient.
[2018-12-26] MEDS ORDERED: D5% in Lactated Ringers 1,000 ML IVC SCH (20:45)
--- NOTE | 2018-12-26 20:52 | Internal Med History&Physical ---
Date of Encounter: 12/26/18 Time of Encounter: 20:52 Internal Medicine - H&P: HPI Chief complaint: AMS Admitted From: Home Plans for Post Hospital Care: Home History of present illness: Information obtained from chart review as the patient is not verbal at this time. Suzy Steward is a 48 year old woman with a psychiatric history remarkable for bipolar disorder, depression, PTSD, suicidal and homicidal ideation as well as substance use disorder. She has been hospitalized multiple times to psych units. As per records, she was involved in a verbal altercation with her boyfriend and took a miracle pill from a pervert whatever that means. She was found to have pinpoint pupils, initially agitated then subsequently somnolent and poorly arousable. Her blood work was grossly unremarkable however her UDS was positive for amphetamines, benzos and cocaine. She will require medical observation and clearance prior to transfer to the psych unit based on the plethora of intoxicating substances. Past Med Surg Social Fam HX - Past Medical History Medical history: hepatitis Additional medical history: Hep C Psychiatric history: anxiety, bipolar, PTSD, previous psychiatric hospit alization - Past Surgical History Surgical History: other Additional surgical history: ablasion. breast augmentation. tubal - Social History Smoking Status: Former smoker Smokeless Tobacco Status: No Alcohol use: none Drug use: cocaine, opiates Internal Medicine - H&P: Meds Buprenorphine HCl/Naloxone HCl [Suboxone 8 mg-2 mg Sl Film] 1 film SL BID 03/31/17 [History] Estrogen,Con/M-Progest Acet [Prempro 0.45-1.5 mg Tablet] 1 tab PO DAILY 03/31/17 [History] Diclofenac Sodium [Voltaren] 50 mg PO TIDWM #30 tablet. 04/01/17 [Rx] Naproxen [Naprosyn] 500 mg PO BID #60 tablet 04/01/17 [Rx] Venlafaxine XR (24 HR) [Effexor XR] 75 mg PO DAILY #30 cap.er.24h 04/01/17 [Rx] lamoTRIgine [Lamictal] 50 mg PO HS #60 tablet 04/01/17 [Rx] Allergy/AdvReac Type Severity Reaction Status Date / Time morphine AdvReac Itching Verified 06/02/18 19:16 All Systems PM: A 10-system review of systems was performed and is negative for pertinent findings except as documented above in the HPI. Unable to obtain family history due to poor mental status. - Constitutional Vitals: Temp Pulse Resp BP Pulse Ox 98.3 F 94 14 114/87 98 12/26/18 17:21 12/26/18 17:21 12/26/18 17:21 12/26/18 17:21 12/26/18 17:32 Exam: Vitals: Reviewed General: Well developed white woman, somnolent but arousable to verbal stimuli. Skin: Dry, warm. HEENT: Dry mucous membranes. No conjunctivae pallor. Neck: No lymphadenopathy. No JVD. No carotid bruits. No palpable thyroid. Chest: Normal thoracic expansion. Normal breath sounds. Clear to auscultation. Heart: Normal S1 & S2; rhythmic. No rubs or murmurs. Abdomen: Non-distended, soft and non-tender to palpation. No peritoneal reaction. Extremities: No clubbing, cyanosis or edema. No calf tenderness. Normal distal pulses. Neurological: Somnolent. No focal deficits. Psych: Unable to assess due to mental status. Internal Med - H&P Results - Labs CBC & Chem 7: 12/26/18 17:20 12/26/18 17:20 Labs: Short CBC 12/26/18 Range/Units 17:20 WBC 7.0 (4.3-11.1) K/mcL Hgb 11.7 (11.5-15.4) g/dL Hct 34.7 L (35.3-44.9) % Plt Count 261 (140-400) K/mcL Neutrophils # 3.6 (1.6-8.9) K/mcL BMP 12/26/18 17:20 Sodium 139 Potassium 3.6 Chloride 102 Carbon Dioxide 27 BUN 23 H Creatinine 0.82 Glucose 91 Calcium 10.1 Liver Function 12/26/18 Range/Units 17:20 Total Bilirubin 0.8 (0.3-1.0) mg/dL Direct Bilirubin 0.3 H (0.0-0.2) mg/dL AST 54 H (13-39) Units/L ALT 47 (7-52) Units/L Alkaline Phosphatase 68 (34-104) Units/L Albumin 4.6 (3.5-5.7) g/dL Urine 12/26/18 Range/Units 17:32 Urine Color Dark Yellow (Yellow) Urine Clarity Clear (Clear) Urine pH 5.0 (5.0-8.0) pH Units Ur Specific [place] > 1.030 H (1.010-1.025) Urine Protein 30 H (Neg-Trace) mg/dL Urine Glucose (UA) Normal (Normal) mg/dL - Impressions ITS Impressions Chest X-Ray 12/26/18 17:20 IMPRESSION: Slightly increased interstitial markings bilaterally which could reflect mild edema. Otherwise no focal consolidation. D/ / Perla Meek MD / Perla Meek MD Interpreting Provider: Perla Meek MD Head CT 12/26/18 17:20 IMPRESSION: No acute intracranial abnormality. D/ / Neo Castañeda MD / Neo Castañeda MD Interpreting Provider: Neo Castañeda MD - Assessment and plan (1) Polysubstance dependence including opioid type drug, episodic abuse Current Visit: Yes Status: Acute Assessment and plan: At this time her current mental status seems secondary to illicit drug use which needs to wear off. Will keep on close observation, fall and seizure precautions. Fluid resuscitation ordered. Current labs within normal limits and not warranting acute intervention. (2) Psychiatric disorder Current Visit: Yes Status: Acute Assessment and plan: Multiple entities at play from her bipolar disorder, depression, suicidal ideation to PTSD coupled with illicit drug use. She will require psychiatric navneet luation once observed and cleared medically. (3) DVT prophylaxis Current Visit: Yes Status: Acute Assessment and plan: SubQ heparin - Time Spent With Patient Total time spent is greater than 50% in coordination of care (as documented) at patient's floor/unit and/or counseling patient: Greater than 35 minutes
[2018-12-27] MEDS ORDERED: Haloperidol Lactate 5 MG/ML VIAL IVP ONE (04:36)
[2018-12-27] MEDS: *HR* Heparin 5,000 UNIT/ML VIAL SQ SCH ×2 (05:00→17:34)
--- NOTE | 2018-12-27 05:05 | Event Note ---
Date of Encounter: 12/27/18 Time of Encounter: 04:30 Alerted by pts. nurse that the pt. was expressing thoughts of killing herself. Went to see the pt. who was in a manic state talking about putting a gun to her head and ending it all. I asked the pt. why she wanted to harm herself. She reported that her fiance is using heroin and that her son has been hospitalized for overdosing. Pt. displaying paranoia during examination. Confusion over pts. ED paperwork. Charge nurse told in report that the pt. did not require a sitter and was being admitted for OD. [place] slip signed in ED by Dr. Gina Johnson on 12/26/18 @ 19:00 but never communicated. After incident of pt. reporting her wishes to shoot herself in the head, a pink slip was signed by Dr. Ceja who admitted the patient. [place] slip signed on 12/27/18 @ 04:30. Charge nurse submitting an incident report regarding ED pink slip and no report of pts. suicidal ideations. 3 mg. IVP Haldol ordered for pt. to help calm her down. Suicide precautions and sitter in place. Nurse instructed to monitor the pt. very closely and alert me immediately of any adverse or behavioral changes.
--- NOTE | 2018-12-27 10:50 | Consult Note ---
Date of Encounter: 12/27/18 Time of Encounter: 10:42 Assessment & Recommendation (1) Substance-induced psychotic disorder Current visit: Yes Status: Acute Assessment & Recommendation: Suspect client's current presentation is all related to substance abuse. Tox screen positive for amphetamines, cocaine, and benzos. Client admitted to this blog writer she was using Crystal Meth in addition to Xanax and Valium. States she does not remember the last four days. Does not remember making suicidal statements last night. Denies she is suicidal today. Noncompliant with treatment for her Bipolar Disorder but she is linked with an outpatient provider and her current presentation seems more related to her substance intoxication/withdrawal than a primary mood disorder. Client is denying SI/HI/AH/VH. Not meeting inpatient criteria at this time. Do not think a sitter is necessary. Still appears to be withdrawing. Twitchy movements and scattered thinking. Would likely benefit from a low dose antipsychotic like Haldol 2.5-5mg q4-6hrs prn until she clears. Would also monitor for need to treat with benzos since client is using these recreationally and may have a withdrawal episode from them. Doubt she will follow up with substance abuse treatment as an outpatient but may want to consider a social media coordinator consult to give her information on where she can go for help once discharged. Call with questions. History of Present Illness Requesting Physician: Rosa Caballero MD Reason for consult: altered mental status History of present illness: Ms. Steward is a 48 year old female who was admitted to the medical floor secondary to altered mental status. Tox screen positive for benzos, cocaine, and amphetamines. Overnight client told staff she wanted to kill herself and a sitter was requested. Today client is still confused but seems to be mentating a little better. Does not remember last night. Claims she does not remember the last four days. Knows she was doing drugs, including crystal meth, but does not know what all she used or how much. Denies she is suicidal. Admits to endorsing SI in the past but denies it has been a recent problem. Not sure why she reported she was suicidal last night and claims no memory of doing so. Currently linked with a provider for mental health in the community. Diagnosed with Bipolar Disorder but substance abuse is likely her primary issue. Client states she was recently prescribed Lamictal. However, client admits she has not started it yet nor is she taking her other home meds as she should. Today client is denying SI, intent, or plan. Also denies HI. States she was hearing voices, likely due to substance use, but that her head is now quiet. She looks to be withdrawing. Her movements are jerky and her thoughts are still scattered. However, she is not presenting as if she wants to harm herself or others at this time. CC: Rosa Caballero MD Past Med Surg Social Fam HX - Past Medical History Medical history: hepatitis - Past Psychiatric History Psychiatric history: Reports: bipolar, depression, previous psychiatric hospitalization Family psychiatric history: Yes Family Psychiatric History Details: Son has Schizophrenia Family History of Suicide: Unknown - Past Surgical History Surgical History: other - Social History Smoking Status: Former smoker Smokeless Tobacco Status: No Alcohol use: none Drug use: cocaine, opiates Medications & Allergies Buprenorphine HCl/Naloxone HCl [Suboxone 8 mg-2 mg Sl Film] 1 film SL BID 03/31/17 [History] Estrogen,Con/M-Progest Acet [Prempro 0.45-1.5 mg Tablet] 1 tab PO DAILY 03/31/17 [History] Diclofenac Sodium [Voltaren] 50 mg PO TIDWM #30 tablet. 04/01/17 [Rx] Naproxen [Naprosyn] 500 mg PO BID #60 tablet 04/01/17 [Rx] Venlafaxine XR (24 HR) [Effexor XR] 75 mg PO DAILY #30 cap.er.24h 04/01/17 [Rx] lamoTRIgine [Lamictal] 50 mg PO HS #60 tablet 04/01/17 [Rx] Allergy/AdvReac Type Severity Reaction Status Date / Time morphine AdvReac Itching Verified 06/02/18 19:16 Review of Systems Constitutional: Denies: fever, chills, weakness, weight change Eyes: Denies: eye pain, vision change Ears, Nose, Throat: Denies: ear pain, throat pain, dental pain, hearing loss, congestion Cardiovascular: Denies: chest pain, palpitations, dyspnea on exertion Respiratory: Denies: cough, dyspnea, wheezes Gastrointestinal: Denies: abdominal pain, nausea, vomiting, diarrhea, constipation Genitourinary female: Denies: urgency, dysuria, frequency, abnormal menses, dyspareunia Musculoskeletal: Denies: joint swelling, joint pain Integumentary: Denies: rash, lesions, pruritus Neurological: Denies: headache, weakness, numbness, memory loss Endocrine: Denies: fatigue, heat or cold intolerance Hematologic/Lymphatic: Denies: easy bruising, lymphadenopathy Allergic/Immunologic: Denies: urticaria, itchy eyes Psychiatry Exam - Constitutional Vitals: Temp Pulse Resp BP Pulse Ox 98.6 F 88 17 95/46 95 12/27/18 03:39 12/27/18 09:31 12/27/18 09:31 12/27/18 09:31 12/27/18 09:31 General appearance: age & developmentally appropriate - Musculoskeletal Gait: other Station: relaxed Strength & Tone: normal for patient - Psychiatric Patient Orientation: Yes Person, Yes Time, Yes Place Level of alertness: Alert Behavior: calm, cooperative Psychomotor activity: Normal Eye Contact: Maintains Eye Contact Mood Description: Euthymic/stable Affect description: congruent with mood Speech Volume: Normal Speech pattern: normal rate, normal rhythm, normal tone, fluent, spontaneous Language & Vocabulary: consistent with education Thought Process: Tangential Thought Content: No Suicidal ideation, No Homicidal ideation, No Overt delusions Perceptual Disturbances: No Auditory hallucinations, No Visual hallucinations Attention Span Ability: Capable of Focused Attention Memory Description: Immediate Intact, Recent Impaired, Remote Intact Patient Reliability: Questionable Historian Fund of knowledge: Yes abstraction ability, Yes aware of current events Intelligence Estimate: Average Judgment: Limited Insight: Minimal Results - Drug Levels and Toxicology Drug Levels and Toxicology: Drug Levels and Toxicity 12/26/18 12/26/18 17:20 17:32 Urine Opiates Screen Negative Acetaminophen < 10 L Ur Barbiturates Screen Negative Ur Phencyclidine Scrn Negative Ur Amphetamines Screen Positive H U Benzodiazepines Scrn Positive H Urine Cocaine Screen Positive H U Marijuana (THC) Screen Negative Ethyl Alcohol < 10 - Labs Labs: Laboratory Last Values WBC 7.0 K/mcL (4.3-11.1) 12/26/18 17:20 RBC 3.83 M/mcL (3.82-4.97) 12/26/18 17:20 Hgb 11.7 g/dL (11.5-15.4) 12/26/18 17:20 Hct 34.7 % (35.3-44.9) L 12/26/18 17:20 MCV 90.6 fL (83.0-100.0) 12/26/18 17:20 MCH 30.5 pg (28.0-33.3) 12/26/18 17:20 MCHC 33.7 g/dL (31.6-35.5) 12/26/18 17:20 RDW 12.6 % (11.5-14.5) 12/26/18 17:20 Plt Count 261 K/mcL (140-400) 12/26/18 17:20 MPV 10.6 fL (9.4-12.4) 12/26/18 17:20 Immature Gran % 0.1 % (0-4) 12/26/18 17:20 Seg Neutrophils % 52.0 % 12/26/18 17:20 Lymphocytes % 35.8 % 12/26/18 17:20 Monocytes % 9.4 % 12/26/18 17:20 Eosinophils % 2.0 % 12/26/18 17:20 Basophils % 0.7 % 12/26/18 17:20 Neutrophils # 3.6 K/mcL (1.6-8.9) 12/26/18 17:20 Lymphocytes # 2.5 K/mcL (0.6-4.6) 12/26/18 17:20 Monocytes # 0.7 K/mcL (0.0-1.3) 12/26/18 17:20 Eosinophils # 0.1 K/mcL (0.0-0.6) 12/26/18 17:20 Basophils # 0.1 K/mcL (0.0-0.2) 12/26/18 17:20 Sodium 139 mEq/L (136-145) 12/26/18 17:20 Potassium 3.6 mEq/L (3.5-5.1) 12/26/18 17:20 Chloride 102 mEq/L (98-107) 12/26/18 17:20 Carbon Dioxide 27 mEq/L (23-29) 12/26/18 17:20 BUN 23 mg/dL (6-20) H 12/26/18 17:20 Creatinine 0.82 mg/dL (0.60-1.20) 12/26/18 17:20 Est GFR ( Amer) > 60 (> 60) 12/26/18 17:20 Est GFR (Non-Af Amer) > 60 (> 60) 12/26/18 17:20 BUN/Creatinine Ratio 28 (6-26) H 12/26/18 17:20 Glucose 91 mg/dL (70-105) 12/26/18 17:20 Calculated Osmolality 291 (280-300) 12/26/18 17:20 Calcium 10.1 mg/dL (8.6-10.3) 12/26/18 17:20 Total Bilirubin 0.8 mg/dL (0.3-1.0) 12/26/18 17:20 Direct Bilirubin 0.3 mg/dL (0.0-0.2) H 12/26/18 17:20 Indirect Bilirubin 0.5 mg/dL (0.0-1.2) 12/26/18 17:20 AST 54 Units/L (13-39) H 12/26/18 17:20 ALT 47 Units/L (7-52) 12/26/18 17:20 Alkaline Phosphatase 68 Units/L (34-104) 12/26/18 17:20 Serum Total Protein 7.4 g/dL (6.4-8.9) 12/26/18 17:20 Albumin 4.6 g/dL (3.5-5.7) 12/26/18 17:20 Globulin 2.8 g/dL (2.4-3.5) 12/26/18 17:20 Albumin/Globulin Ratio 1.6 (1.1-2.2) 12/26/18 17:20 TSH 1.022 mcIU/mL (0.340-5.600) 12/26/18 17:20 Urine Color Dark Yellow (Yellow) 12/26/18 17:32 Urine Clarity Clear (Clear) 12/26/18 17:32 Urine pH 5.0 pH Units (5.0-8.0) 12/26/18 17:32 Ur Specific [place] > 1.030 (1.010-1.025) H 12/26/18 17:32 Urine Protein 30 mg/dL (Neg-Trace) H 12/26/18 17:32 Urine Glucose (UA) Normal mg/dL (Normal) 12/26/18 17:32 Urine Ketones Trace mg/dL (Negative) H 12/26/18 17:32 Urine Blood Negative (Negative) 12/26/18 17:32 Urine Nitrite Negative (Negative) 12/26/18 17:32 Urine Bilirubin Small (Negative) H 12/26/18 17:32 Urine Urobilinogen Normal mg/dL (Normal) 12/26/18 17:32 Ur Leukocyte Esterase Negative (Negative) 12/26/18 17:32 Urine Microscopic RBC 0-3 per hpf (0-3) 12/26/18 17:32 Urine Microscopic WBC 3-5 per hpf (0-3) H 12/26/18 17:32 Ur Squamous Epith Cells Many per lpf (None-Few) H 12/26/18 17:32 Urine Bacteria None Seen per hpf (None-Few) 12/26/18 17:32 Hyaline Casts Few per lpf (None-Few) 12/26/18 17:32 Urine Mucus Many (Few) H 12/26/18 17:32 Salicylates < 2.5 mg/dL (15.0-30.0) L 12/26/18 17:20 Urine Opiates Screen Negative ng/mL (Gwmkng=727) 12/26/18 17:32 Acetaminophen < 10 mcg/mL (10-20) L 12/26/18 17:20 Ur Barbiturates Screen Negative ng/mL (Qaeihi=055) 12/26/18 17:32 Ur Phencyclidine Scrn Negative ng/mL (Cutoff=25) 12/26/18 17:32 Ur Amphetamines Screen Positive ng/mL (Rzqrwu=8362) H 12/26/18 17:32 U Benzodiazepines Scrn Positive ng/mL (Gvsyjo=507) H 12/26/18 17:32 Urine Cocaine Screen Positive ng/mL (Cutoff= 300) H 12/26/18 17:32 U Marijuana (THC) Screen Negative ng/mL (Cutoff = 50) 12/26/18 17:32 Ur Drug Screen Interp See Below 12/26/18 17:32 Ethyl Alcohol < 10 mg/dL (Less than 10) 12/26/18 17:20 - Impressions Impressions Chest X-Ray 12/26/18 17:20 IMPRESSION: Slightly increased interstitial markings bilaterally which could reflect mild edema. Otherwise no focal consolidation. D/ / Perla Meek MD / Perla Meek MD Interpreting Provider: Perla Meek MD Head CT 12/26/18 17:20 IMPRESSION: No acute intracranial abnormality. D/ / Neo Castañeda MD / Neo Castañeda MD Interpreting Provider: Neo Castañeda MD Consult Discharge Plan - Plan Referrals: NONE,PCP [Primary Care Provider] -
--- NOTE | 2018-12-27 13:38 | Internal Med Progress Note ---
Hospitalist Progress Note - Encounter Date of Encounter: 12/27/18 Time of Encounter: 13:30 - Subjective Interval History: Suzy Steward is a 48 year old woman with a psychiatric history remarkable for bipolar disorder, depression, PTSD, suicidal and homicidal ideation as well as substance use disorder. She has been hospitalized multiple times to psych units. As per records, she was involved in a verbal altercation with her boyfriend and took a miracle pill from a pervert whatever that means. She was found to have pinpoint pupils, initially agitated then subsequently somnolent and poorly arousable. Her blood work was grossly unremarkable however her UDS was positive for amphetamines, benzos and cocaine. Patient has been on one-on-one sitter for suicidal precaution. She is alert and oriented 3, she doing well, eating well. She is asking if she can go home, but she is pink slipped Patient is medically cleared for inpatient psychiatry admission. - Exam Vitals: Temp Pulse Resp BP Pulse Ox 98.1 F 84 16 95/51 95 12/27/18 11:12 12/27/18 11:12 12/27/18 11:12 12/27/18 11:12 12/27/18 09:31 Exam: CONSTITUTIONAL: patient appears as an age appropriate female in no acute distress. EYES Clear sclerae, bilateral pupils are equal, reactive to light. EMOI. RESPIRATORY: No accessory muscle use, bilateral clear to auscultation, no wheezing, no crackles/rales. CARDIOVASCULAR: Regular heart rate, normal S1 and S2, no murmurs GASTROINTESTINAL: bowel sounds present, soft, no tenderness. MUSCULOSKELETAL: Joints in normal range of motion, no clubbing, no edema, no cyanosis. Bilateral peripheral pulses 2+. NEUROLOGIC: CN II to XII are grossly intact, no focal neurological deficit. - Summary of Assessment and Plan Summary of Assessment and Plan: (1) Polysubstance dependence including opioid type drug, episodic abuse Current Visit: Yes Status: Acute Assessment and plan: urine toxicology positive for for Benzo, cocaine, amphetamines resolved (2) Psychiatric disorder Current Visit: Yes Status: Acute Assessment and plan: Multiple entities at play from her bipolar disorder, depression, suicidal ideation to PTSD coupled with illicit drug use. (3) DVT prophylaxis Current Visit: Yes Status: Acute Assessment and plan: SubQ heparin patient is medically clered for inpatient psychiatry admission. - Time Spent with Patient Total time spent is greater than 50% in coordination of care (as documented) at patient's floor/unit and/or counseling patient: 25 - 35 minutes Plan of Care Discussed with: patient Internal Medicine: Result - Labs CBC & Chem 7: 12/26/18 17:20 12/26/18 17:20 Labs: Short CBC 12/26/18 Range/Units 17:20 WBC 7.0 (4.3-11.1) K/mcL Hgb 11.7 (11.5-15.4) g/dL Hct 34.7 L (35.3-44.9) % Plt Count 261 (140-400) K/mcL Neutrophils # 3.6 (1.6-8.9) K/mcL BMP 12/26/18 17:20 Sodium 139 Potassium 3.6 Chloride 102 Carbon Dioxide 27 BUN 23 H Creatinine 0.82 Glucose 91 Calcium 10.1 Liver Function 12/26/18 Range/Units 17:20 Total Bilirubin 0.8 (0.3-1.0) mg/dL Direct Bilirubin 0.3 H (0.0-0.2) mg/dL AST 54 H (13-39) Units/L ALT 47 (7-52) Units/L Alkaline Phosphatase 68 (34-104) Units/L Albumin 4.6 (3.5-5.7) g/dL Urine 12/26/18 Range/Units 17:32 Urine Color Dark Yellow (Yellow) Urine Clarity Clear (Clear) Urine pH 5.0 (5.0-8.0) pH Units Ur Specific [place] > 1.030 H (1.010-1.025) Urine Protein 30 H (Neg-Trace) mg/dL Urine Glucose (UA) Normal (Normal) mg/dL - Impressions Impressions Chest X-Ray 12/26/18 17:20 IMPRESSION: Slightly increased interstitial markings bilaterally which could reflect mild edema. Otherwise no focal consolidation. D/ / Perla Meek MD / Perla Meke MD Interpreting Provider: Perla Meek MD Head CT 12/26/18 17:20 IMPRESSION: No acute intracranial abnormality. D/ / Neo Castañeda MD / Neo Castañeda MD Interpreting Provider: Neo Castañeda MD Consult Discharge Plan - Plan Referrals: NONE,PCP [Primary Care Provider] -
[2018-12-27] MEDS ORDERED: Venlafaxine XR (24 HR) 150 MG CAP.ER.24H PO SCH (18:00)
[2018-12-27] MEDS ORDERED: lamoTRIgine 100 MG TABLET PO SCH (21:00)
[2018-12-27] MEDS ORDERED: Mirtazapine 15 MG TABLET PO SCH (21:00)
[2018-12-28] MEDS: *HR* Heparin 5,000 UNIT/ML VIAL SQ SCH (06:09)
[2018-12-28 11:23] VITALS: BP 106/65
--- NOTE | 2018-12-28 14:21 | Discharge Summary ---
Orders not resulted at time of discharge: Pending orders 12/26/18 17:20 ECG 12 lead ECG [ECG] Stat Date of Encounter: 12/28/18 Time of Encounter: 14:16 - Discharge Diagnosis (1) Polysubstance dependence including opioid type drug, episodic abuse Priority: Primary Status: Resolved (2) Psychiatric disorder Priority: Secondary Status: Acute Hospital course: Suzy Steward is a 48 year old woman with a psychiatric history remarkable for bipolar disorder, depression, PTSD, suicidal and homicidal ideation as well as substance use disorder. She has been hospitalized multiple times to psych units. As per records, she was involved in a verbal altercation with her boyfriend and took a miracle pill from a pervert whatever that means. She was found to have pinpoint pupils, initially agitated then subsequently somnolent and poorly arousable. Her blood work was grossly unremarkable however her UDS was positive for amphetamines, benzos and cocaine. Patient is doing well, she is alert and oriented 3. She denies any suicide ideation. Sitter and the suicidal percussion were removed yesterday. She is eating well current diet. She is ready to go home. Psychiatry was consulted yesterday, they do not think patient need inpatient psychiatric treatment, okay for discharge. (1) Polysubstance dependence including opioid type drug, episodic abuse Current Visit: Yes Status: Acute Assessment and plan: urine toxicology positive for for Benzo, cocaine, amphetamines resolved (2) Psychiatric disorder Current Visit: Yes Status: Acute Assessment and plan: Multiple entities at play from her bipolar disorder, depression, suicidal ideation to PTSD coupled with illicit drug use. continue home meds follow up OP (3) DVT prophylaxis Current Visit: Yes Status: Acute Assessment and plan: SubQ heparin Discharge discussed with: patient Time spent discussing smoking cessation with patient: 3 to 10 minutes - Time Spent with Patient Total time spent providing and/or coordinating discharge services: Less than 30 minutes - Discharge Medications Home Medications: Buprenorphine HCl/Naloxone HCl [Suboxone 8 mg-2 mg Sl Film] 1 film SL BID 03/31/17 [History] Estradiol 0.5 mg PO DAILY 12/27/18 [History] Medroxyprogesterone Acetate [Provera] 2.5 mg PO DAILY 12/27/18 [History] Mirtazapine [Remeron] 30 mg PO HS 12/27/18 [History] Prazosin [Minipress] 1 mg PO HS 12/27/18 [History] Venlafaxine XR (24 HR) [Effexor Xr] 150 mg PO DAILY 12/27/18 [History] lamoTRIgine [Lamictal] 100 mg PO HS 12/27/18 [History] Allergies/Adverse Reactions: Allergy/AdvReac Type Severity Reaction Status Date / Time morphine AdvReac Itching Verified 06/02/18 19:16 Date of admission: 12/26/18 20:36 Primary care physician: PCP NONE Consults: 12/26/18 23:42 Consult to Psychiatry [CONS] Routine Consulting Provider: Psychiatry Karis Reason consult: Altered mental status - Constitutional Vitals: Temp Pulse Resp BP Pulse Ox 97.7 F 90 18 106/65 98 12/28/18 11:16 12/28/18 11:16 12/28/18 11:16 12/28/18 11:16 12/28/18 11:16 General appearance: Present: A&O X 3, pleasant Exam: CONSTITUTIONAL: patient appears as an age appropriate female in no acute distress. EYES Clear sclerae, bilateral pupils are equal, reactive to light. EMOI. RESPIRATORY: No accessory muscle use, bilateral clear to auscultation, no wheezing, no crackles/rales. CARDIOVASCULAR: Regular heart rate, normal S1 and S2, no murmurs GASTROINTESTINAL: bowel sounds present, soft, no tenderness. MUSCULOSKELETAL: Joints in normal range of motion, no clubbing, no edema, no cyanosis. Bilateral peripheral pulses 2+. NEUROLOGIC: CN II to XII are grossly intact, no focal neurological deficit. - Patient Status Disposition: Home, Self-Care Condition: Good Functional capacity at discharge: independent ambulation Overall status at discharge: patient is back to baseline - Discharge Instructions Follow Up With: NONE,PCP [Primary Care Provider] - - Diet and Activity Diet: advance to your usual diet
--- NOTE | 2018-12-29 16:30 | Electrocardiograph Report ---
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
== END 2018-12-28 15:48 | disposition home or self-care (01) ==
LOC: 3BNU 17:17 → EMEROOARM 17:17 → 3BNU 21:08
PROVIDERS: ADMIT Internal Medicine; ATTEND Internal Medicine

== ENCOUNTER 2019-07-06 17:50 | Inpatient (IN) ==
[2019-07-06 19:07] LABS: Basophils % 0.4 %; Eosinophils # 0.1 K/mcL (0.0-0.6); Eosinophils % 1.1 %; Hematocrit 41.7 % (35.3-44.9); Hemoglobin 13.4 g/dL (11.5-15.4); Immature Granulocytes % 0.4 % (0-4); Lymphocytes # 1.5 K/mcL (0.6-4.6); Lymphocytes % 18.5 %; Mean Corpuscular HGB Conc 32.1 g/dL (31.6-35.5); Mean Corpuscular Hemoglobin 29.8 pg (28.0-33.3); Mean Corpuscular Volume 92.9 fL (83.0-100.0); Mean Platelet Volume 11.4 fL (9.4-12.4); Monocytes # 0.5 K/mcL (0.0-1.3); Monocytes % 5.6 %; Neutrophils # 6.1 K/mcL (1.6-8.9); Platelet Count 305 K/mcL (140-400); Red Blood Count 4.49 M/mcL (3.82-4.97); White Blood Count 8.2 K/mcL (4.3-11.1)
[2019-07-06 19:15] LABS: Acetaminophen < 10 mcg/mL (10-20); BUN/Creatinine Ratio 26 (6-26); Blood Urea Nitrogen 15 mg/dL (6-20); Calcium 9.1 mg/dL (8.6-10.3); Carbon Dioxide 21 mEq/L (23-29); Chloride 108 mEq/L (98-107); Ethanol < 10 mg/dL (Less than 10); Glucose 90 mg/dL (70-105); Osmolality,Calculated 286 (280-300); Potassium 3.3 mEq/L (3.5-5.1); Salicylate < 2.5 mg/dL (15.0-30.0); Sodium 138 mEq/L (136-145); eGFR For African Americans > 60 (> 60); eGFR For Non-African Americans > 60 (> 60)
[2019-07-06 19:56] LABS: Bilirubin,Urine Negative (Negative); Blood,Urine Negative (Negative); Clarity,Urine Clear (Clear); Color,Urine Yellow (Yellow); Glucose,Urine (UA) Normal (Normal); Ketones,Urine Negative (Negative); Leukocyte Esterase,Urine Small (Negative); Nitrite,Urine Negative (Negative); PH,Urine 5.5 pH Units (5.0-8.0); Protein,Urine Negative (Neg-Trace); Specific Gravity,Urine 1.021 (1.010-1.025); Urobilinogen,Urine Normal (Normal)
[2019-07-06 20:03] LABS: Bacteria,Urine None Seen per hpf (None-Few); Hyaline Casts,Urine None Seen per lpf (None-Few); Squamous Epithelial Cell,Urine Many per lpf (None-Few)
[2019-07-06 20:04] LABS: Amphetamine Screen,Urine Positive ng/mL (Cutoff=1000); Barbiturate Screen,Urine Negative ng/mL (Cutoff=200); Benzodiazepines Screen,Urine Positive ng/mL (Cutoff=200); Cannabinoid Screen,Urine Negative ng/mL (Cutoff = 50); Cocaine Screen,Urine Negative ng/mL (Cutoff= 300); Opiate Screen,Urine Negative ng/mL (Cutoff=300); Phencyclidine Screen,Urine Negative ng/mL (Cutoff=25)
[2019-07-06] MEDS ORDERED: *HR* LORazepam 1 MG TABLET PO PRN (23:08)
[2019-07-06] MEDS ORDERED: traZODone 50 MG TABLET PO PRN (23:08)
[2019-07-06] MEDS ORDERED: hydrOXYzine pamoate 25 MG CAPSULE PO PRN (23:08)
[2019-07-06] MEDS ORDERED: MOM Conc 10 ML UD.LIQ PO PRN (23:08)
[2019-07-06] MEDS ORDERED: *HR* LORazepam 2 MG/ML VIAL IM PRN (23:08)
[2019-07-06] MEDS ORDERED: Ibuprofen 400 MG TABLET PO PRN (23:08)
[2019-07-06] MEDS ORDERED: Haloperidol Lactate 5 MG/ML VIAL IM PRN (23:08)
[2019-07-07] MEDS: ARIPiprazole 5 MG TABLET PO SCH ×2 (00:55→21:11)
[2019-07-07] MEDS: Venlafaxine XR (24 HR) 150 MG CAP.ER.24H PO SCH ×2 (00:55→09:31)
[2019-07-07] MEDS: Mag Hydrox/Al Hydrox/Simeth 30 ML UDC PO PRN ×2 (03:31→07:57)
[2019-07-07] MEDS: Prempro 0.625/2.5 MG TABLET PO SCH (09:31)
[2019-07-07] MEDS ORDERED: Ondansetron ODT 4 MG TAB.RAPDIS SL PRN (09:45)
[2019-07-07 11:13] LABS: Chol/HDL Ratio 2.8 (0-4.9)
[2019-07-07 11:27] LABS: Thyroid Stimulating Hormone 0.284 mcIU/mL (0.340-5.600)
[2019-07-07 11:49] LABS: Estimated Average Glucose 117 mg/dl
[2019-07-07] MEDS ORDERED: OLANZapine 5 MG TAB.RAPDIS PO SCH (21:00)
[2019-07-08] MEDS: Prempro 0.625/2.5 MG TABLET PO SCH (08:57)
[2019-07-08] MEDS: Venlafaxine XR (24 HR) 150 MG CAP.ER.24H PO SCH (08:58)
[2019-07-08 09:36] VITALS: BP 104/71
== END 2019-07-08 13:45 | disposition home or self-care (01) | DRG 773 ==
LOC: 1ANU 17:50 → EMEROOARM 17:50 → 1ANU 23:00
PROVIDERS: ADMIT Psychiatry & Neurology Psychiatry; ATTEND Psychiatry & Neurology Psychiatry

== ENCOUNTER 2020-04-29 14:42 | Inpatient (IN) ==
[2020-04-29 15:16] LABS: Bilirubin,Urine Small (Negative); Blood,Urine Negative (Negative); Clarity,Urine Cloudy (Clear); Color,Urine Yellow (Yellow); Glucose,Urine (UA) Normal (Normal); Ketones,Urine Trace mg/dL (Negative); Leukocyte Esterase,Urine Negative (Negative); Nitrite,Urine Negative (Negative); PH,Urine 5.5 pH Units (5.0-8.0); Protein,Urine Negative (Neg-Trace); Specific Gravity,Urine > 1.030 (1.010-1.025); Urobilinogen,Urine Normal (Normal)
[2020-04-29 15:18] LABS: Bacteria,Urine Moderate per hpf (None-Few); Hyaline Casts,Urine Few per lpf (None-Few); Squamous Epithelial Cell,Urine Many per lpf (None-Few)
[2020-04-29 15:20] LABS: Basophils # 0.1 K/mcL (0.0-0.2); Basophils % 0.9 %; Eosinophils # 0.1 K/mcL (0.0-0.6); Eosinophils % 1.4 %; Hematocrit 43.8 % (35.3-44.9); Immature Granulocytes % 0.2 % (0-4); Lymphocytes % 30.7 %; Mean Corpuscular Hemoglobin 30.4 pg (28.0-33.3); Mean Platelet Volume 10.7 fL (9.4-12.4); Monocytes # 0.4 K/mcL (0.0-1.3); Monocytes % 6.7 %; Neutrophils # 3.9 K/mcL (1.6-8.9); Platelet Count 293 K/mcL (140-400); Red Blood Count 4.61 M/mcL (3.82-4.97); Red Cell Distribution Width 12.7 % (11.5-14.5); Segmented Neutrophils % 60.1 %; White Blood Count 6.4 K/mcL (4.3-11.1)
[2020-04-29 15:21] LABS: RBC,Urine 0-3 per hpf (0-3)
[2020-04-29 15:37] LABS: Acetaminophen < 10 mcg/mL (10-20); Alanine Aminotransferase 25 Units/L (7-52); Albumin 4.3 g/dL (3.5-5.7); Albumin/Globulin Ratio 1.4 (1.1-2.2); Alkaline Phosphatase 84 Units/L (34-104); Aspartate Amino Transferase 27 Units/L (13-39); BUN/Creatinine Ratio 20 (6-26); Bilirubin,Direct 0.1 mg/dL (0.0-0.2); Bilirubin,Indirect 0.2 mg/dL (0.0-1.0); Bilirubin,Total 0.3 mg/dL (0.3-1.0); Blood Urea Nitrogen 15 mg/dL (6-20); Calcium 9.5 mg/dL (8.6-10.3); Carbon Dioxide 28 mEq/L (23-29); Chloride 107 mEq/L (98-107); Chol/HDL Ratio 3.1 (0-4.9); Cholesterol 190 mg/dL (< 200); Ethanol < 10 mg/dL (Less than 10); Globulin 3.1 g/dL (2.4-3.5); Glucose 89 mg/dL (70-105); HDL Cholesterol 62 mg/dL (40-59); LDL Cholesterol,Calculated 88 mg/dL (0-99); Osmolality,Calculated 290 (280-300); Potassium 3.7 mEq/L (3.5-5.1); Salicylate 5.4 mg/dL (15.0-30.0); Sodium 140 mEq/L (136-145); Total Protein 7.4 g/dL (6.4-8.9); Triglycerides 199 mg/dL (< 150); eGFR For African Americans > 60 (> 60); eGFR For Non-African Americans > 60 (> 60)
[2020-04-29 15:41] LABS: Estimated Average Glucose 120 mg/dl
[2020-04-29 15:48] LABS: Amphetamine Screen,Urine Negative ng/mL (Cutoff=1000); Barbiturate Screen,Urine Negative ng/mL (Cutoff=200); Benzodiazepines Screen,Urine Negative ng/mL (Cutoff=200); Cannabinoid Screen,Urine Positive ng/mL (Cutoff = 50); Cocaine Screen,Urine Negative ng/mL (Cutoff= 300); Opiate Screen,Urine Negative ng/mL (Cutoff=300); Phencyclidine Screen,Urine Negative ng/mL (Cutoff=25)
[2020-04-29] MEDS ORDERED: haloperidoL 5 MG TABLET PO PRN (16:42)
[2020-04-29] MEDS ORDERED: Acetaminophen 325 MG TABLET PO PRN (16:42)
[2020-04-29] MEDS ORDERED: *HR* LORazepam 2 MG/ML VIAL IM PRN (16:42)
[2020-04-29] MEDS ORDERED: Mag Hydrox/Al Hydrox/Simeth 30 ML UDC PO PRN (16:42)
[2020-04-29] MEDS ORDERED: *HR* LORazepam 1 MG TABLET PO PRN (16:42)
[2020-04-29] MEDS ORDERED: Haloperidol Lactate 5 MG/ML VIAL IM PRN (16:42)
[2020-04-29] MEDS ORDERED: MOM Conc 10 ML UD.LIQ PO PRN (16:42)
[2020-04-29] MEDS: hydrOXYzine pamoate 25 MG CAPSULE PO PRN (20:05)
[2020-04-30] MEDS: Venlafaxine XR (24 HR) 75 MG CAP.ER.24H PO SCH (21:04)
[2020-04-30] MEDS: ARIPiprazole 5 MG TABLET PO SCH (21:04)
[2020-04-30] MEDS: hydrOXYzine pamoate 25 MG CAPSULE PO PRN (21:04)
[2020-05-01] MEDS: Prempro 0.625/2.5 MG TABLET PO SCH (08:28)
[2020-05-01] MEDS: Venlafaxine XR (24 HR) 75 MG CAP.ER.24H PO SCH ×2 (08:28→20:15)
[2020-05-01] MEDS: ARIPiprazole 5 MG TABLET PO SCH (20:15)
[2020-05-01] MEDS: hydrOXYzine pamoate 25 MG CAPSULE PO PRN (20:15)
[2020-05-01] MEDS: traZODone 50 MG TABLET PO PRN (20:15)
[2020-05-02] MEDS: Venlafaxine XR (24 HR) 75 MG CAP.ER.24H PO SCH (09:02)
[2020-05-02] MEDS: Prempro 0.625/2.5 MG TABLET PO SCH (09:02)
[2020-05-02] MEDS: ARIPiprazole 5 MG TABLET PO SCH (20:03)
[2020-05-02] MEDS: traZODone 50 MG TABLET PO PRN (20:04)
[2020-05-02] MEDS ORDERED: Venlafaxine XR (24 HR) 75 MG CAP.ER.24H PO SCH (21:00)
[2020-05-03] MEDS ORDERED: Venlafaxine XR (24 HR) 150 MG CAP.ER.24H PO SCH (09:00)
[2020-05-03] MEDS ORDERED: Venlafaxine XR (24 HR) 75 MG CAP.ER.24H PO SCH (09:00)
[2020-05-03] MEDS ORDERED: ESTROGEN CON PO SCH (09:00)
[2020-05-03] MEDS ORDERED: M PROGEST ACET PO SCH (09:00)
[2020-05-03 09:53] VITALS: BP 119/83
== END 2020-05-03 12:30 | disposition home or self-care (01) | DRG 751 ==
LOC: EMEROOARM 14:42 → 1ANU 16:39
PROVIDERS: ADMIT Psychiatry & Neurology Psychiatry; ATTEND Psychiatry & Neurology Psychiatry

== ENCOUNTER 2021-01-29 11:59 | Inpatient (IN) ==
[2021-01-29 12:30] LABS: Basophils % 0.9 %; Eosinophils # 0.1 K/mcL (0.0-0.6); Eosinophils % 1.7 %; Hematocrit 41.4 % (35.3-44.9); Lymphocytes # 1.5 K/mcL (0.6-4.6); Mean Corpuscular HGB Conc 32.4 g/dL (31.6-35.5); Mean Corpuscular Hemoglobin 30.9 pg (28.0-33.3); Mean Corpuscular Volume 95.4 fL (83.0-100.0); Mean Platelet Volume 10.9 fL (9.4-12.4); Monocytes # 0.3 K/mcL (0.0-1.3); Monocytes % 7.3 %; Neutrophils # 2.3 K/mcL (1.6-8.9); Platelet Count 296 K/mcL (140-400); Red Blood Count 4.34 M/mcL (3.82-4.97); Segmented Neutrophils % 55.1 %; White Blood Count 4.2 K/mcL (4.3-11.1)
[2021-01-29 12:36] LABS: Hemoglobin 13.4 g/dL (11.5-15.4)
[2021-01-29 12:46] LABS: Acetaminophen < 10 mcg/mL (10-20); BUN/Creatinine Ratio 18 (6-26); Blood Urea Nitrogen 12 mg/dL (6-20); Calcium 9.1 mg/dL (8.6-10.3); Carbon Dioxide 23 mEq/L (23-29); Chloride 106 mEq/L (98-107); Chol/HDL Ratio 2.6 (0-4.9); Cholesterol 167 mg/dL (< 200); Ethanol < 10 mg/dL (Less than 10); Glucose 94 mg/dL (70-105); HDL Cholesterol 64 mg/dL (40-59); LDL Cholesterol,Calculated 85 mg/dL (< 100); Osmolality,Calculated 290 (280-300); Potassium 3.2 mEq/L (3.5-5.1); Salicylate < 2.5 mg/dL (15.0-30.0); Sodium 140 mEq/L (136-145); Triglycerides 89 mg/dL (< 150); eGFR For African Americans > 60 (> 60); eGFR For Non-African Americans > 60 (> 60)
[2021-01-29] MEDS ORDERED: Potassium Chloride Elixir 20 MEQ/15 ML UDC PO ONE (13:40)
[2021-01-29 13:58] LABS: Bacteria,Urine Few per hpf (None-Few); Bilirubin,Urine Negative (Negative); Blood,Urine Negative (Negative); Clarity,Urine Clear (Clear); Color,Urine Yellow (Yellow); Glucose,Urine (UA) Normal (Normal); Hyaline Casts,Urine Few per lpf (None Seen); Ketones,Urine Negative (Negative); Leukocyte Esterase,Urine Negative (Negative); Mucus,Urine Moderate per lpf (None-Few); Nitrite,Urine Negative (Negative); Protein,Urine 30 mg/dL (Neg-Trace); RBC,Urine 0-3 per hpf (0-3); Specific Gravity,Urine > 1.030 (1.010-1.025); Squamous Epithelial Cell,Urine Few per hpf (None-Few); WBC,Urine 0-3 per hpf (0-3)
[2021-01-29 14:15] LABS: Amphetamine Screen,Urine Positive ng/mL (Cutoff=1000); Barbiturate Screen,Urine Negative ng/mL (Cutoff=200); Benzodiazepines Screen,Urine Negative ng/mL (Cutoff=200); Cannabinoid Screen,Urine Negative ng/mL (Cutoff = 50); Cocaine Screen,Urine Negative ng/mL (Cutoff= 300); Opiate Screen,Urine Negative ng/mL (Cutoff=300); Phencyclidine Screen,Urine Negative ng/mL (Cutoff=25)
[2021-01-29] MEDS ORDERED: Haloperidol Lactate 5 MG/ML VIAL IM PRN (17:18)
[2021-01-29] MEDS ORDERED: haloperidoL 5 MG TABLET PO PRN (17:18)
[2021-01-29] MEDS ORDERED: Acetaminophen 325 MG TABLET PO PRN (17:18)
[2021-01-29] MEDS ORDERED: MOM Conc 10 ML UD.LIQ PO PRN (17:18)
[2021-01-29] MEDS ORDERED: traZODone 50 MG TABLET PO PRN (17:18)
[2021-01-29] MEDS ORDERED: hydrOXYzine pamoate 25 MG CAPSULE PO PRN (17:18)
[2021-01-29] MEDS ORDERED: *HR* LORazepam 1 MG TABLET PO PRN (17:18)
[2021-01-29] MEDS ORDERED: Mag Hydrox/Al Hydrox/Simeth 30 ML UDC PO PRN (17:18)
[2021-01-29] MEDS ORDERED: *HR* LORazepam 2 MG/ML VIAL IM PRN (17:18)
[2021-01-30 07:13] LABS: Estimated Average Glucose 117 mg/dl; Hemoglobin A1C 5.7 %
[2021-01-30] MEDS ORDERED: Nicotine 21 MG PATCH.TD24 TD SCH (09:00)
[2021-01-30] MEDS: OLANZapine 5 MG TAB.RAPDIS PO SCH (20:28)
[2021-01-31 11:30] LABS: Alanine Aminotransferase 22 Units/L (7-52); Albumin 4.2 g/dL (3.5-5.7); Albumin/Globulin Ratio 1.3 (1.1-2.2); Alkaline Phosphatase 67 Units/L (34-104); Aspartate Amino Transferase 22 Units/L (13-39); BUN/Creatinine Ratio 25 (6-26); Bilirubin,Total 0.3 mg/dL (0.3-1.0); Blood Urea Nitrogen 15 mg/dL (6-20); Calcium 9.8 mg/dL (8.6-10.3); Carbon Dioxide 23 mEq/L (23-29); Chloride 104 mEq/L (98-107); Globulin 3.2 g/dL (2.4-3.5); Glucose 90 mg/dL (70-105); Osmolality,Calculated 284 (280-300); Potassium 4.2 mEq/L (3.5-5.1); Sodium 137 mEq/L (136-145); Total Protein 7.4 g/dL (6.4-8.9); eGFR For African Americans > 60 (> 60); eGFR For Non-African Americans > 60 (> 60)
[2021-01-31] MEDS: OLANZapine 5 MG TAB.RAPDIS PO SCH (20:11)
[2021-02-01 10:10] VITALS: BP 130/81
== END 2021-02-01 13:30 | disposition home or self-care (01) | DRG 751 ==
LOC: EMEROOARM 11:59 → 1ANU 16:44 → INTOOBSV 16:44 → 1ANU 17:48
PROVIDERS: ADMIT Psychiatry & Neurology Psychiatry; ATTEND Psychiatry & Neurology Psychiatry

== ENCOUNTER 2021-03-24 21:53 | Inpatient (IN) ==
[2021-03-24 22:47] LABS: Basophils # 0.1 K/mcL (0.0-0.2); Basophils % 0.8 %; Eosinophils % 0.2 %; Hematocrit 42.6 % (35.3-44.9); Hemoglobin 13.8 g/dL (11.5-15.4); Immature Granulocytes % 0.2 % (0-4); Lymphocytes # 2.2 K/mcL (0.6-4.6); Lymphocytes % 23.9 %; Mean Corpuscular HGB Conc 32.4 g/dL (31.6-35.5); Mean Corpuscular Hemoglobin 30.7 pg (28.0-33.3); Mean Corpuscular Volume 94.9 fL (83.0-100.0); Mean Platelet Volume 10.6 fL (9.4-12.4); Monocytes # 0.6 K/mcL (0.0-1.3); Monocytes % 6.8 %; Neutrophils # 6.2 K/mcL (1.6-8.9); Platelet Count 334 K/mcL (140-400); Red Blood Count 4.49 M/mcL (3.82-4.97); Red Cell Distribution Width 12.6 % (11.5-14.5); Segmented Neutrophils % 68.1 %; White Blood Count 9.2 K/mcL (4.3-11.1)
[2021-03-24 23:07] LABS: Acetaminophen < 10 mcg/mL (10-20); BUN/Creatinine Ratio 17 (6-26); Blood Urea Nitrogen 16 mg/dL (6-20); Calcium 10.2 mg/dL (8.6-10.3); Carbon Dioxide 28 mEq/L (23-29); Chloride 103 mEq/L (98-107); Chol/HDL Ratio 2.4 (0-4.9); Cholesterol 177 mg/dL (< 200); Ethanol < 10 mg/dL (Less than 10); Glucose 131 mg/dL (70-105); HDL Cholesterol 75 mg/dL (40-59); LDL Cholesterol,Calculated 90 mg/dL (< 100); Osmolality,Calculated 297 (280-300); Potassium 3.5 mEq/L (3.5-5.1); Salicylate < 2.5 mg/dL (15.0-30.0); Sodium 142 mEq/L (136-145); Triglycerides 59 mg/dL (< 150); eGFR For African Americans > 60 (> 60); eGFR For Non-African Americans > 60 (> 60)
[2021-03-24 23:27] LABS: Estimated Average Glucose 117 mg/dl; Hemoglobin A1C 5.7 %
[2021-03-24 23:44] LABS: Bilirubin,Urine Negative (Negative); Blood,Urine Negative (Negative); Calcium Oxalate Crystals,Urine Present per hpf; Clarity,Urine Turbid (Clear); Color,Urine Yellow (Yellow); Glucose,Urine (UA) Normal (Normal); Granular Casts,Urine Many per lpf (None Seen); Hyaline Casts,Urine Many per lpf (None Seen); Ketones,Urine Trace mg/dL (Negative); Leukocyte Esterase,Urine Moderate (Negative); Mucus,Urine Many per lpf (None-Few); Nitrite,Urine Negative (Negative); PH,Urine 5.5 pH Units (5.0-8.0); Protein,Urine 100 mg/dL (Neg-Trace); Specific Gravity,Urine > 1.030 (1.010-1.025); Squamous Epithelial Cell,Urine Few per hpf (None-Few); WBC,Urine 15-30 per hpf (0-3)
[2021-03-24 23:51] LABS: Amphetamine Screen,Urine Positive ng/mL (Cutoff=1000); Barbiturate Screen,Urine Negative ng/mL (Cutoff=200); Benzodiazepines Screen,Urine Negative ng/mL (Cutoff=200); Cannabinoid Screen,Urine Negative ng/mL (Cutoff = 50); Cocaine Screen,Urine Negative ng/mL (Cutoff= 300); Opiate Screen,Urine Negative ng/mL (Cutoff=300); Phencyclidine Screen,Urine Negative ng/mL (Cutoff=25)
[2021-03-25] MEDS ORDERED: cephALEXin 500 MG CAPSULE PO ONE (02:00)
[2021-03-25] MEDS ORDERED: *HR* LORazepam 1 MG TABLET PO ONE (02:00)
[2021-03-25] MEDS ORDERED: Sulfamethoxazole/Trimeth DS 1 EACH TABLET PO ONE (02:04)
[2021-03-25] MEDS ORDERED: Haloperidol Lactate 5 MG/ML VIAL IM ONE (10:04)
[2021-03-25] MEDS ORDERED: *HR* LORazepam 2 MG/ML VIAL IM ONE (10:04)
[2021-03-25] MEDS ORDERED: *HR* LORazepam 2 MG/ML VIAL IM PRN (22:13)
[2021-03-25] MEDS ORDERED: *HR* LORazepam 1 MG TABLET PO PRN (22:13)
[2021-03-25] MEDS ORDERED: traZODone 50 MG TABLET PO PRN (22:13)
[2021-03-25] MEDS ORDERED: Haloperidol Lactate 5 MG/ML VIAL IM PRN (22:13)
[2021-03-26] MEDS: OLANZapine 5 MG TAB.RAPDIS PO SCH ×2 (11:27→21:28)
[2021-03-26] MEDS ORDERED: Mag Hydrox/Al Hydrox/Simeth 30 ML UDC PO PRN (14:49)
[2021-03-26] MEDS ORDERED: MOM Conc 10 ML UD.LIQ PO PRN (14:49)
[2021-03-26] MEDS: haloperidoL 5 MG TABLET PO PRN (14:52)
[2021-03-27] MEDS: OLANZapine 5 MG TAB.RAPDIS PO SCH ×2 (09:14→20:32)
[2021-03-27] MEDS: hydrOXYzine pamoate 25 MG CAPSULE PO PRN (20:32)
[2021-03-28] MEDS: OLANZapine 5 MG TAB.RAPDIS PO SCH ×3 (13:26→19:47)
[2021-03-28] MEDS: hydrOXYzine pamoate 25 MG CAPSULE PO PRN (19:47)
[2021-03-29] MEDS: OLANZapine 5 MG TAB.RAPDIS PO SCH ×2 (09:07→20:53)
[2021-03-29] MEDS: haloperidoL 5 MG TABLET PO PRN (09:09)
[2021-03-29] MEDS: Acetaminophen 325 MG TABLET PO PRN (16:37)
[2021-03-29] MEDS ORDERED: Nicotine 2 MG GUM BC PRN (17:03)
[2021-03-30] MEDS: OLANZapine 5 MG TAB.RAPDIS PO SCH ×2 (10:06→20:59)
[2021-03-30] MEDS: Acetaminophen 325 MG TABLET PO PRN (10:43)
[2021-03-31] MEDS: OLANZapine 5 MG TAB.RAPDIS PO SCH (08:33)
[2021-03-31] MEDS: Acetaminophen 325 MG TABLET PO PRN (08:34)
[2021-03-31 09:46] VITALS: BP 129/82
== END 2021-03-31 12:25 | disposition home or self-care (01) | DRG 753 ==
LOC: EMEROOARM 21:53 → SUATTDRO 03-25 22:10 → 1ANU 03-25 22:10
PROVIDERS: ADMIT Psychiatry & Neurology Psychiatry; ATTEND Psychiatry & Neurology Forensic Psychiatry